=== PATIENT | female | born 1940 | race Caucasian/White ===

== ENCOUNTER → 2016-03-01 | Outpatient (CLI) | payer MEDICARE, BC ==
--- NOTE | 2016-03-04 07:10 | MM ---
Reason for exam: screening (asymptomatic). Last mammogram was performed 1 year ago. History: Patient is postmenopausal. Benign MG stereo VAD BX RT of the right breast, March 04, 2014. Taking estrogen for 24 years beginning at age 47. Physical Findings: A clinical breast exam by your physician is recommended on an annual basis and results should be correlated with mammographic findings. MG 3D Screening Mammo W/Cad Bilateral CC and MLO view(s) were taken. Prior study comparison: February 28, 2015, bilateral MG 3d screening mammo w/cad. August 15, 2014, right breast MG diagnostic mammo RT w CAD. The breast tissue is heterogeneously dense. This may lower the sensitivity of mammography. There is no discrete abnormality. No significant changes when compared with prior studies. ASSESSMENT: Negative, BI-RAD 1 RECOMMENDATION: Routine screening mammogram of both breasts in 1 year.
== END | disposition home or self-care (01) ==
LOC: RADMAMWWP 10:26
PROVIDERS: ATTEND Family Medicine
DX: Z12.31 Encounter for screening mammogram for malignant neoplasm of breast (principal)
CPT/HCPCS: 77063; G0202

== ENCOUNTER → 2017-05-16 | Outpatient (CLI) | payer MEDICARE, BC ==
--- NOTE | 2017-05-19 13:28 | MM ---
Reason for exam: screening (asymptomatic). Last mammogram was performed 1 year and 3 months ago. History: Patient is postmenopausal. Benign MG stereo VAD BX RT of the right breast, March 04, 2014. Taking estrogen for 24 years beginning at age 47. Physical Findings: A clinical breast exam by your physician is recommended on an annual basis and results should be correlated with mammographic findings. MG 3D Screening Mammo W/Cad Bilateral CC and MLO view(s) were taken. Prior study comparison: March 01, 2016, bilateral MG 3d screening mammo w/cad. February 28, 2015, bilateral MG 3d screening mammo w/cad. There are scattered fibroglandular densities. There is chronic nodularity bilaterally. No significant changes when compared with prior studies. ASSESSMENT: Benign, BI-RAD 2 RECOMMENDATION: Routine screening mammogram of both breasts in 1 year.
== END | disposition home or self-care (01) ==
LOC: RADMAMWWP 09:07
PROVIDERS: ATTEND Obstetrics & Gynecology
DX: Z12.31 Encounter for screening mammogram for malignant neoplasm of breast (principal)
CPT/HCPCS: 77063; 77067

== ENCOUNTER 2017-11-12 09:35 | Observation (INO) | payer MEDICARE, BC ==
--- NOTE | 2017-11-12 09:58 | ED ---
Chest Pain HPI - General Chief Complaint: Chest Pain Stated Complaint: CHEST PAIN AND SOB Time Seen by Provider: 11/12/17 09:37 Source: patient, RN notes reviewed, old records reviewed Mode of arrival: EMS Limitations: no limitations - History of Present Illness Initial Comments: This is a 77-year-old female the ER for evaluation of chest pain. Left-sided chest pain. Patient denies history of high blood pressure does have history of chest pain history of prior cardiac evaluation including catheterization which she states both of been negative. She has recent travel history no sick contacts, denies a trauma no fevers no cough or congestion. Patient states she' s had 3-4 days of this chest pain is been intermittent episodic but currently started last night and has been getting worse. She is not requiring anything for pain at this time. -: days(s) (3) Onset: during rest Pain Location: substernal, left chest Pain Radiation: back Severity: moderate Severity scale (1-10): 5 Quality: tightness, dull Consistency: intermittent Improves With: nothing Worsens With: nothing Treatments Prior to Arrival: none - Related Data Home Medications Medication Instructions Recorded Confirmed Omeprazole [PriLOSEC] 20 mg PO AC-BRKFST 10/03/13 11/12/17 Atorvastatin Calcium 20 mg PO HS 07/11/15 11/12/17 Estradiol 1 mg PO DAILY 07/11/15 11/12/17 Acetaminophen/Diphenhydramine 1 tab PO HS PRN 11/12/17 11/12/17 [Tylenol PM Extra Strength] Dicyclomine HCl 10 mg PO AC-TID 11/12/17 11/12/17 Melatonin 3 mg PO HS 11/12/17 11/12/17 Previous Rx's Medication Instructions Recorded Aspirin 81 mg PO DAILY #30 chewable 10/04/13 Nitroglycerin Sl Tabs [Nitrostat] 0.4 mg SUBLINGUAL Q5M PRN #30 tab 10/04/13 Allergies Allergy/AdvReac Type Severity Reaction Status Date / Time adhesive Allergy Rash/Hives Verified 11/12/17 10:57 latex Allergy Rash/Hives Verified 11/12/17 10:57 Review of Systems ROS Statement: Those systems with pertinent positive or pertinent negative responses have been documented in the HPI. ROS Other: All systems not noted in ROS Statement are negative. EKG Findings - EKG Comments: EKG Findings:: EKG shows sinus recurred a rate of 56, W[place] 196, QRS 84, QTc 438 Past Medical History Past Medical History: GERD/Reflux, Hyperlipidemia History of Any Multi-Drug Resistant Organisms: None Reported Past Surgical History: Back Surgery, Cholecystectomy, Heart Catheterization, Hysterectomy Additional Past Surgical History / Comment(s): reduction of pelvic fracture. Past Anesthesia/Blood Transfusion Reactions: No Reported Reaction Past Psychological History: No Psychological Hx Reported Smoking Status: Never smoker Past Alcohol Use History: Occasional Past Drug Use History: None Reported - Past Family History Father Family Medical History: Hypertension Additional Family Medical History / Comment(s): States Father had stents General Exam Limitations: no limitations General appearance: alert, in no apparent distress Head exam: Present: atraumatic, normocephalic, normal inspection Eye exam: Present: normal appearance, PERRL, EOMI. Absent: scleral icterus, conjunctival injection, periorbital swelling ENT exam: Present: normal exam, mucous membranes moist Neck exam: Present: normal inspection. Absent: tenderness, meningismus, lymphadenopathy Respiratory exam: Present: normal lung sounds bilaterally. Absent: respiratory distress, wheezes, rales, rhonchi, stridor Cardiovascular Exam: Present: regular rate, normal rhythm, normal heart sounds. Absent: systolic murmur, diastolic murmur, rubs, gallop, clicks GI/Abdominal exam: Present: soft, normal bowel sounds. Absent: distended, tenderness, guarding, rebound, rigid Extremities exam: Present: normal inspection, full ROM, normal capillary refill. Absent: tenderness, pedal edema, joint swelling, calf tenderness Back exam: Present: normal inspection Neurological exam: Present: alert, oriented X3, CN II-XII intact Psychiatric exam: Present: normal affect, normal mood Skin exam: Present: warm, dry, intact, normal color. Absent: rash Course Vital Signs 11/12/17 11/12/17 11/12/17 09:37 10:48 12:04 Temperature 97.1 F L 97.7 F 98.2 F Pulse Rate 55 L 52 L 55 L Respiratory 18 18 18 Rate Blood Pressure 185/77 154/68 136/89 O2 Sat by Pulse 99 96 94 L Oximetry - Reevaluation(s) Reevaluation #1: 11/12/17 10:48 Patient's medical records thoroughly reviewed Reevaluation #2: 11/12/17 10:48 Patient continues to chest pain Reevaluation #3: 11/12/17 13:16 Studies Chest x-rays negative for acute disease Chest Pain MDM - MDM 77 female the ER for evaluation, positive chest pain. Will be admitted for cardiac observation Critical Care Time Critical Care Time: Yes Total Critical Care Time: 31 Disposition Clinical Impression: Chest pain Disposition: ADMITTED IP TO THIS HOSP Condition: Undetermined Is patient prescribed a controlled substance at d/c from ED?: No
--- NOTE | 2017-11-12 10:20 | XR ---
EXAMINATION TYPE: XR chest 2V DATE OF EXAM: 11/12/2017 COMPARISON: Prior chest x-ray 07/11/2015 HISTORY: Chest pain, coronary artery disease TECHNIQUE: Frontal and lateral views of the chest are obtained. FINDINGS: There is no focal air space opacity, pleural effusion, or pneumothorax seen. The cardiac silhouette size is within normal limits. The patient is rotated, there are overlying cardiac leads. T here are prominent lung volumes. The osseous structures are intact. IMPRESSION: No acute cardiopulmonary process.
[2017-11-12 10:31] LABS: Basophils % (A) 1 %; Eosinophils # (A) 0.4 k/uL (0-0.7); Eosinophils % (A) 6 %; HCT 41.3 % (34.0-46.0); HGB 13.6 gm/dL (11.4-16.0); Lymphocytes # (A) 2.1 k/uL (1.0-4.8); Lymphocytes % (A) 32 %; MCH 31.7 pg (25.0-35.0); MCHC 33.1 g/dL (31.0-37.0); MCV 95.8 fL (80.0-100.0); Mean Platelet Volume 8.7; Monocytes # (A) 0.3 k/uL (0-1.0); Monocytes % (A) 5 %; Neutrophils # (A) 3.6 k/uL (1.3-7.7); Neutrophils % (A) 55 %; Platelet Count 145 k/uL (150-450); RBC 4.31 m/uL (3.80-5.40); RDW 12.6 % (11.5-15.5); WBC 6.6 k/uL (3.8-10.6)
[2017-11-12 10:42] LABS: INR 1.1 (<1.2); Partial Thromboplastin Time 23.4 sec (22.0-30.0); Prothrombin Time 10.4 sec (9.0-12.0)
[2017-11-12 10:52] LABS: Albumin 3.8 g/dL (3.5-5.0); Potassium 4.6 mmol/L (3.5-5.1); Total Bilirubin 0.5 mg/dL (0.2-1.3); Total Protein 6.6 g/dL (6.3-8.2)
[2017-11-12 11:01] LABS: Creatine Kinase 52 U/L (30-135)
[2017-11-12 11:13] LABS: Creatine Kinase MB 1.2 ng/mL (0.0-2.4); Troponin I <0.012 ng/mL (0.000-0.034)
--- NOTE | 2017-11-12 12:09 | CT ---
CT CHEST FOR PULMONARY EMBOLISM. EXAMINATION TYPE: CT angio chest DATE OF EXAM: 11/12/2017 INDICATION: chest pain, cardiac cath CT DLP: 176.1 mGycm, Automated exposure control for dose reduction was used. CONTRAST: Patient injected with 100 mL of Isovue 370. COMPARISON: None TECHNIQUE: CT of the chest is performed on a spiral scan at 2 mm thick sections. Study is performed with intravenous contrast timed for evaluation for pulmonary embolism. This will limit additional po rtions of the evaluation. 3-D MIP images reconstructed by the technologist are reviewed on the compu ter in the coronal and sagittal planes. FINDINGS: No persistent filling defects are evident to suggest an acute pulmonary embolism. No mediastinal or hilar adenopathy enlarged by CT criteria is evident. The ascending aorta diameter at the level of the main pulmonary artery is 2.9 cm. The main pulmonary artery diameter at the bifur cation is 1.9 cm. Lung windows are clear. CT abdomen is performed and reported separately. IMPRESSIONS: 1. No acute pulmonary embolism.
--- NOTE | 2017-11-12 12:22 | CT ---
EXAMINATION TYPE: CT abdomen pelvis w con DATE OF EXAM: 11/12/2017 COMPARISON: HISTORY: chest pain, cardiac cath CT DLP: 1337.8 mGycm Automated exposure control for dose reduction was used. TECHNIQUE: Helical acquisition of images from the lung bases through the pelvis have been completed. CONTRAST: Performed without Oral Contrast and with IV Contrast, patient injected with 100 mL of Isovue 370. FINDINGS: LUNG BASES: No significant abnormality is appreciated. AORTA: No significant abnormality is appreciated. LIVER/GB: Patient is post cholecystectomy. Liver shows no mass. PANCREAS: No significant abnormality is seen. SPLEEN: No significant abnormality is seen. ADRENALS: No significant abnormality is seen. KIDNEYS: There is a hypoattenuating focus measuring 12 mm in the anterior cortex the right kidney lik elizabeth representing cysts, subcentimeter focus within the upper pole the left kidney measures only 3 to 4 mm. REPRODUCTIVE ORGANS: Uterus and adnexal structures are not seen. BOWEL: No significant abnormality is seen. Appendix is not identified. FREE AIR: No Free Air visible. ASCITES: None visible. PELVIC ADENOPATHY: None visualized. RETROPERITONEAL ADENOPATHY: No Retroperitoneal Adenopathy visible. URINARY BLADDER: No significant abnormality is seen. OSSEOUS STRUCTURES: Degenerative disc changes, facet arthropathy noted in the lower lumbar spine. IMPRESSION: POSTOP CHANGES. NO ACUTE ABNORMALITY EVIDENT. ADDITIONAL FINDINGS ABOVE.
[2017-11-12] MEDS ORDERED: MORPHINE SULFATE 4 MG/ML SYRINGE IVP STA (12:30)
[2017-11-12] MEDS ORDERED: HEPARIN SODIUM,PORCINE 5,000 UNIT/ML 1 ML VIAL IV ONE (12:39)
[2017-11-12] MEDS ORDERED: NITROGLYCERIN SL TABS 0.4 MG TAB SUBLINGUAL PRN (12:39)
[2017-11-12] MEDS ORDERED: HEPARIN SODIUM,PORCINE 5,000 UNIT/ML 1 ML VIAL IV PRN (12:39)
[2017-11-12] MEDS ORDERED: ASPIRIN 81 MG PO STA (12:39)
[2017-11-12] MEDS ORDERED: HEPARIN SOD,PORK IN 0.45% NACL 25,000 UNIT in 0.45% NACL 1 500ML.BAG IV SCH (12:45)
[2017-11-12] MEDS ORDERED: MORPHINE SULFATE 4 MG/ML SYRINGE IV PRN (12:45)
[2017-11-12] MEDS: SODIUM CHLORIDE 0.9% 1,000 ML IV SCH ×2 (13:23→23:23)
--- NOTE | 2017-11-12 15:44 | P.CRDCN ---
History of Present Illness History of present illness: Mrs. Phillips is a pleasant 77-year-old female past medical history significant for dyslipidemia, irritable bowel syndrome and gastroesophageal reflux disease. She denies coronary artery disease. She underwent cardiac catheterization 07/2015 that revealed normal coronary arteries with normal LV systolic function ejection fraction 70%. She follows with Dr. Rollins in the office. We have been asked to see her in consultation for chest pain. She states she woke up this morning in her normal state of health and was drinking her coffee and ate 2 bites of a banana when she started feeling her heart racing. She was also light headed. She has a home monitoring cuff that she applied and she states her heart rate was 223, questioned whether this was her systolic blood pressure but she was adament this was her heart rate. She then started developing a pain in her left upper back radiating through to her chest , into the left shoulder and down her left upper arm. She called EMS. She states when they arrived she was still having the intense pain. They gave her SL nitroglycerin x3 which did not relieve her pain. Upon arrival to ED she was given IV morphine which took away the pain. She has had no further pain since that time. Blood pressure on arrival 185/77 heart rate 55. EMS report reviewed reveals blood pressure on admission was 200/123 with heart rate in the 80's. EKG reveals sinus mechanism with non-specific ST abnormalities and no acute changes. Chest xray negative for an acute cardiopulmonary process. CTA chest/abdomen/pelvis negative for PE with no abnormalities within the aorta. Laboratory data reviewed, hgb 13.6, platelets 145, sodium 139, potassium 4.6, creatinine 0.77, magnesium 2.0, cardiac enzymes negative 1, NT proBNP 385. Current cardiac medications include aspirin 81 mg daily, atorvastatin 20 mg daily. She also takes Prilosec and dicyclomine. Review of Systems At the time of my exam: CONSTITUTIONAL: Denies fever. Denies chills. EYES: Denies blurred vision. Denies vision changes. Denies eye pain. EARS, NOSE, MOUTH & THROAT: Denies headache. Denies sore throat. Denies ear pain. CARDIOVASCULAR: Denies chest pain. Denies shortness of breath. Denies orthopnea. Denies PND. Denies palpitations. RESPIRATORY: Denies cough. GASTROINTESTINAL: Denies abdominal pain. Denies diarrhea. Denies constipation. Denies nausea. Denies vomiting. MUSCULOSKELETAL: Denies myalgias. INTEGUMENTARY: Denies pruitis. Denies rash. NEUROLOGIC: Denies numbness. Denies tingling. Denies weakness. PSYCHIATRIC: Denies anxiety. Denies depression. ENDOCRINE: Denies fatigue. Denies weight change. Denies polydipsia. Denies polyurina. GENITOURINARY: Denies burning, hematuria or urgency with micturation. HEMATOLOGIC: Denies history of anemia. Denies bleeding. Past Medical History Past Medical History: GERD/Reflux, Hyperlipidemia History of Any Multi-Drug Resistant Organisms: None Reported Past Surgical History: Back Surgery, Cholecystectomy, Heart Catheterization, Hysterectomy Additional Past Surgical History / Comment(s): reduction of pelvic fracture. Past Anesthesia/Blood Transfusion Reactions: No Reported Reaction Past Psychological History: No Psychological Hx Reported Smoking Status: Never smoker Past Alcohol Use History: Occasional Past Drug Use History: None Reported - Past Family History Father Family Medical History: Hypertension Additional Family Medical History / Comment(s): States Father had stents Medications and Allergies Home Medications Medication Instructions Recorded Confirmed Type Omeprazole [PriLOSEC] 20 mg PO AC-BRKFST 10/03/13 11/12/17 History Aspirin 81 mg PO DAILY #30 chewable 10/04/13 11/12/17 Rx Nitroglycerin Sl Tabs [Nitrostat] 0.4 mg SUBLINGUAL Q5M PRN #30 tab 10/04/1304/27 Rx Atorvastatin Calcium 20 mg PO HS 07/11/15 11/12/17 History Estradiol 1 mg PO DAILY 07/11/15 11/12/17 History Acetaminophen/Diphenhydramine 1 tab PO HS PRN 11/12/17 11/12/17 History [Tylenol PM Extra Strength] Dicyclomine HCl 10 mg PO AC-TID 11/12/17 11/12/17 History Melatonin 3 mg PO HS 11/12/17 11/12/17 History Allergies Allergy/AdvReac Type Severity Reaction Status Date / Time adhesive Allergy Rash/Hives Verified 11/12/17 10:57 latex Allergy Rash/Hives Verified 11/12/17 10:57 Physical Exam Vitals: Vital Signs Temp Pulse Resp BP Pulse Ox 11/12/17 13:27 98.4 F 52 L 18 162/107 94 L 11/12/17 12:04 98.2 F 55 L 18 136/89 94 L 11/12/17 10:48 97.7 F 52 L 18 154/68 96 11/12/17 09:37 97.1 F L 55 L 18 185/77 99 Intake and Output 11/11/17 11/12/17 11/12/17 22:59 06:59 14:59 Other: Weight 65.68 kg GENERAL: This is a 77-year-old female in no apparent distress at the time of my examination. HEENT: Head is atraumatic, normocephalic. Pupils are equal, round. Sclerae anicteric. Conjunctivae are clear. Mucous membranes of the mouth are moist. Neck is supple. There is no jugular venous distention. No carotid bruit is heard. LUNGS: Clear to auscultation no wheezes, rales or rhonchi. No chest wall tenderness is noted on palpation or with deep breathing. HEART: Regular rate and rhythm without murmurs, rubs or gallops. S1 and S2 heard. ABDOMEN: Soft, nontender. Bowel sounds are heard. No organomegaly noted. EXTREMITIES: No evidence of peripheral edema and no calf tenderness noted. VASCULAR: Radial and dorsalis pedis pulses palpated, no evidence of clubbing. NEUROLOGIC: Patient is awake, alert and oriented x3. Results 11/12/17 09:43 11/12/17 09:43 Cardiac Enzymes 11/12/17 11/12/17 Range/Units 09:43 09:43 AST 21 (14-36) U/L CK-MB (CK-2) 1.2 (0.0-2.4) ng/mL Troponin I <0.012 (0.000-0.034) ng/mL Coagulation 11/12/17 Range/Units 09:43 PT 10.4 (9.0-12.0) sec APTT 23.4 (22.0-30.0) sec CBC 11/12/17 Range/Units 09:43 WBC 6.6 (3.8-10.6) k/uL RBC 4.31 (3.80-5.40) m/uL Hgb 13.6 (11.4-16.0) gm/dL Hct 41.3 (34.0-46.0) % Plt Count 145 L (150-450) k/uL Comprehensive Metabolic Panel 11/12/17 Range/Units 09:43 Sodium 139 (137-145) mmol/L Potassium 4.6 (3.5-5.1) mmol/L Chloride 106 (98-107) mmol/L Carbon Dioxide 24 (22-30) mmol/L BUN 19 H (7-17) mg/dL Creatinine 0.77 (0.52-1.04) mg/dL Glucose 87 (74-99) mg/dL Calcium 9.0 (8.4-10.2) mg/dL AST 21 (14-36) U/L ALT 12 (9-52) U/L Alkaline Phosphatase 41 (38-126) U/L Total Protein 6.6 (6.3-8.2) g/dL Albumin 3.8 (3.5-5.0) g/dL Current Medications Generic Name Dose Route Start Last Admin Trade Name Freq PRN Reason Stop Dose Admin Aspirin 325 mg 11/13/17 09:00 Aspirin PO DAILY [facility] Atorvastatin Calcium 80 mg 11/13/17 09:00 Lipitor PO DAILY [facility] Heparin Sodium (Porcine) 0 unit 11/12/17 12:39 Heparin IV Q6HR PRN Low PTT Protocol Heparin Sodium/Sodium Chloride 500 mls @ 15.76 mls/hr 11/12/17 12:45 13:23 25,000 unit/ Sodium Chloride IV 12 units/kg/hr .Q24H TANI 15.76 mls/hr Administration Protocol 12 UNITS/KG/HR Sodium Chloride 1,000 mls @ 100 mls/hr 11/12/17 12:45 11/12/17 13:23 Saline 0.9% IV 100 mls/hr .Q10H TANI Administration Metoprolol Tartrate 25 mg 11/12/17 21:00 Lopressor PO BID TANI Morphine Sulfate 4 mg 11/12/17 12:45 Morphine Sulfate (Inj) IV Q4HR PRN Chest Pain Nitroglycerin 0.4 mg 11/12/17 12:39 Nitrostat SUBLINGUAL Q5M PRN Chest Pain Intake and Output 11/11/17 11/12/17 11/12/17 22:59 06:59 14:59 Other: Weight 65.68 kg Patient Weight 11/13/17 06:59 Weight 65.68 kg 11/12/17 09:43 11/12/17 09:43 Assessment and Plan Assessment: ASSESSMENT Palpitations with associated chest pain and dizziness. Pain is atypical for angina. Recent catheterization reveals normal coronary arteries. Hypertension Dyslipidemia Gastroesophageal reflux disease PLAN Obtain 2D echocardiogram and doppler study to assess cardiac structure and function. Check TSH. Add amlodipine 5 mg daily. Continue to obtain serial cardiac enzymes to rule out an acute event. If enzymes are normal heparin infusion can be discontinued. Thank you kindly for this consultation. Nurse Practitioner note has been reviewed, I agree with a documented findings and plan of care. Patient was seen and examined.
[2017-11-12] MEDS: amLODIPine 5 MG TAB PO SCH ×2 (16:34→19:40)
[2017-11-12] MEDS ORDERED: ACETAMINOPHEN TAB 500 MG TAB PO PRN (16:47)
[2017-11-12] MEDS ORDERED: diphenhydrAMINE 25 MG CAP PO PRN (16:54)
[2017-11-12] MEDS: ONDANSETRON 4 MG/2 ML VIAL IVP PRN (17:09)
[2017-11-12 17:27] LABS: Creatine Kinase MB 1.1 ng/mL (0.0-2.4); Troponin I 0.023 ng/mL (0.000-0.034)
[2017-11-12] MEDS: DICYCLOMINE 10 MG CAP PO SCH (19:39)
[2017-11-12] MEDS ORDERED: METOPROLOL TARTRATE 25 MG TAB PO SCH (21:00)
[2017-11-12] MEDS ORDERED: MELATONIN 3 MG TABLET PO SCH (21:00)
[2017-11-12] MEDS ORDERED: ATORVASTATIN 20 MG TAB PO SCH (21:00)
[2017-11-12 21:04] LABS: Creatine Kinase MB 1.3 ng/mL (0.0-2.4); Troponin I 0.026 ng/mL (0.000-0.034)
--- NOTE | 2017-11-12 21:51 | HP ---
HISTORY AND PHYSICAL DATE OF ADMISSION: 11/12/2017 DATE OF SERVICE: 11/12/2017 PRESENTING COMPLAINT: Back pain. HISTORY OF PRESENTING COMPLAINT: This is a very pleasant 77-year-old patient of Dr. Knutson. Chronic stable medical conditions include GERD, hypertension, hyperlipidemia. This morning she woke up with pain starting off at the left shoulder blade, then going down between the shoulder blades, felt like a grabbing pain, present on and off for most of the day. It did go down the left arm. There were episodes of dizziness. No shortness of breath. Some lightheadedness. Patient did get nitroglycerin, with not much help. She presented to the ER. Earlier a CT angio was done. PE was ruled out. Cardiology was consulted, who saw the patient earlier today. Patient was put on IV heparin from the ER. Symptoms are greatly improved right now, though patient does feel tired. REVIEW OF SYSTEMS: CONSTITUTIONAL: None. HEENT: None. RESPIRATORY: None. CARDIOVASCULAR: As above. GASTROINTESTINAL: Heartburn. GENITOURINARY: None. MUSCULOSKELETAL: Some arthritic pain in the joints. DERMATOLOGICAL: None. HEMATOLOGICAL: None. LYMPHATICS: None. PSYCHIATRY: None. NEUROLOGICAL: None. PAST MEDICAL HISTORY: 1. GERD. 2. Hyperlipidemia. 3. Hypertension. PAST SURGICAL HISTORY: 1. Back surgery. 2. Cholecystectomy. 3. Cardiac catheterization. 4. Hysterectomy. 5. Reduction of pelvic fracture. SOCIAL HISTORY: Does not smoke. Alcohol occasionally. Lives with significant other. FAMILY HISTORY: Father had coronary artery disease and hypertension. HOME MEDICATIONS: 1. Melatonin 3 mg at bedtime. 2. Tylenol PM extra-strength. 3. Prilosec 20 mg with breakfast. 4. Nitrostat 0.4 sublingually q.5 p.r.n. 5. Estradiol 1 mg p.o. daily. 6. Dicyclomine 10 mg before meals t.i.d. 7. Atorvastatin 20 mg at bedtime. 8. Aspirin 81 mg daily. ALLERGIES: 1. ADHESIVE. 2. LATEX. PHYSICAL EXAMINATION: VITAL SIGNS ON PRESENTATION: Temperature 97.1, pulse 55, respiration 18, blood pressure 185/77, pulse ox 99% on room air. Repeat blood pressure was 154/68 and repeat blood pressure was 138/69. GENERAL APPEARANCE: Average build. Lying in bed, comfortable. EYES: Pupils equal. Conjunctivae normal. HEENT: External appearance of nose and ears normal. Oral cavity normal. NECK: JVD not raised. Mass not palpable. RESPIRATORY: Effort normal. LUNGS: Fair air entry. CARDIOVASCULAR: First and second sounds normal. No edema. ABDOMEN: Soft, non-tender. Liver and spleen not palpable. LYMPHATIC: No lymph node palpable in neck or axillae. PSYCHIATRY: Alert and oriented x3. Mood and affect normal. EXTREMITIES: Patient's radial pulses in both the arms show the same volume. INVESTIGATIONS: White count 6.6, hemoglobin 13.6, potassium 4.6, BUN 19, creatinine 0.77. EKG tracing, personally reviewed by me, shows some ST-segment depression in V4 to V6 and possibly in II and aVF. Abdominal/pelvis CT scan: no acute abnormality reported. Chest CTA shows no acute pulmonary embolism. Chest x-ray, personally reviewed by me, shows no obvious abnormality. ASSESSMENT: 1. This is a patient who presented with significant pain on and off for a few hours between the shoulder blades with some EKG changes associated with dizziness; could well be cardiac angina. Patient did have a chest CTA for pulmonary embolism. No dissection was reported. I have ordered another CT scan of the chest to see if I can rule out aortic dissection, though will check with the radiologist to see if the previous CT scan can give the same answer. 2. Essential hypertension with urgency on presentation. 3. Hyperlipidemia. 4. Gastroesophageal reflux disease. 5. Chronic insomnia, idiopathic. PLAN: Cardiology was consulted. Serial cardiac enzymes were ordered and they are less than 0.012, 0.023, 0.026. Follow up with them. Care was discussed with the patient. MMODL / IJN: [id number] /
[2017-11-13 03:14] LABS: Mean Platelet Volume 8.4; Platelet Count 151 k/uL (150-450)
[2017-11-13 03:28] LABS: Cholesterol 130 mg/dL (<200); HDL Cholesterol 71 mg/dL (40-60); LDL Cholesterol,Calculated 40 mg/dL (0-99); Triglycerides 96 mg/dL (<150)
[2017-11-13] MEDS ORDERED: PANTOPRAZOLE 40 MG TABLET PO SCH (07:30)
[2017-11-13 07:46] VITALS: RESP 16
--- NOTE | 2017-11-13 08:47 | P.PN ---
Subjective Mrs. Phillips is seen and examined up walking around her room from the bathroom. Past medical history significant for dyslipidemia, irritable bowel syndrome and gastroesophageal reflux disease. She has had no further symptoms of chest pain since admission. She denies shortness of breath, dizziness or palpitations. Echo has been obtained and will be reviewed. Laboratory data reviewed, cardiac enzymes negative x4, LDL 40, HDL 71, TSG 1.98. Amlodipine was started yesterday for hypertension. On further discussion she states she also takes lopressor 25 mg BID but forgot to mention on admission. Blood pressure 136/65 heat rate 63 afebrile and maintaining oxygen saturation on room air. Objective - Vital Signs Vital signs: Vital Signs Temp 98.5 F 11/13/17 07:44 Pulse 63 11/13/17 07:44 Resp 16 11/13/17 07:44 BP 136/65 11/13/17 07:44 Pulse Ox 95 11/13/17 07:44 Intake & Output 11/12/17 11/13/17 11/13/17 18:59 06:59 18:59 Intake Total 118.2 Balance 118.2 Weight 62.4 kg Intake: Intake, IV Titration 118.2 Amount Heparin Sod,Pork in 0.45% 118.2 NaCl 25,000 unit In 0.45 % NaCl 1 500ml.bag @ 12 UNITS/KG/HR 15.76 mls/hr IV .Q24H [facility] Rx#: [id number] Other: Voiding Method Toilet Toilet # Emeses 1 - Exam GENERAL: This is a 77-year-old female in no apparent distress at the time of my examination. HEENT: Head is atraumatic, normocephalic. Pupils are equal, round. Sclerae anicteric. Conjunctivae are clear. Mucous membranes of the mouth are moist. Neck is supple. There is no jugular venous distention. No carotid bruit is heard. LUNGS: Clear to auscultation no wheezes, rales or rhonchi. No chest wall tenderness is noted on palpation or with deep breathing. HEART: Regular rate and rhythm without murmurs, rubs or gallops. S1 and S2 heard. EXTREMITIES: No evidence of peripheral edema and no calf tenderness noted. - Labs CBC & Chem 7: 11/13/17 02:48 11/12/17 09:43 Labs: Abnormal Lab Results - Last 24 Hours (Table) 11/12/17 11/12/17 11/12/17 Range/Units 09:43 09:43 20:07 Plt Count 145 L (150-450) k/uL APTT 76.2 H (22.0-30.0) sec BUN 19 H (7-17) mg/dL HDL Cholesterol (40-60) mg/dL 11/13/17 11/13/17 Range/Units 02:47 02:47 Plt Count (150-450) k/uL APTT 52.4 H (22.0-30.0) sec BUN (7-17) mg/dL HDL Cholesterol 71 H (40-60) mg/dL Assessment and Plan Assessment: ASSESSMENT Palpitations with associated chest pain and dizziness. Pain is atypical for angina. Recent catheterization reveals normal coronary arteries. Hypertension Dyslipidemia Gastroesophageal reflux disease PLAN An acute coronary event has been ruled out. Blood pressure is better controlled and she is tolerating amlodipine. Stable from a cardiac perspective. Ongoing treatment per primary medical team of other etiologies for her symptoms. Follow up with Dr. Rollins at already scheduled appointment in December. Advised her to keep a blood pressure journal and bring with her to follow up appointment. Nurse Practitioner note has been reviewed, I agree with a documented findings and plan of care. Patient was seen and examined.
[2017-11-13] MEDS: DICYCLOMINE 10 MG CAP PO SCH ×2 (08:59→13:17)
[2017-11-13] MEDS: amLODIPine 5 MG TAB PO SCH (08:59)
[2017-11-13] MEDS ORDERED: ESTRADIOL 0.5 MG TAB PO SCH (09:00)
[2017-11-13] MEDS ORDERED: METOPROLOL TARTRATE 25 MG TAB PO SCH (09:00)
[2017-11-13] MEDS ORDERED: ASPIRIN 325 MG TAB PO SCH (09:00)
[2017-11-13] MEDS ORDERED: ASPIRIN 81 MG PO SCH (09:00)
[2017-11-13] MEDS ORDERED: ATORVASTATIN 80 MG TAB PO SCH (09:00)
[2017-11-13] MEDS: SODIUM CHLORIDE 0.9% 1,000 ML IV SCH (09:29)
--- NOTE | 2017-11-13 11:43 | ECHOF ---
Referral Reason:cp MEASUREMENTS -------- HEIGHT: 154.9 cm WEIGHT: 62.1 kg BP: 130/54 IVSd: 1.1 cm (0.6 - 1.1) LVIDd: 3.4 cm (3.9 - 5.3) LVPWd: 1.0 cm (0.6 - 1.1) IVSs: 1.3 cm LVIDs: 2.2 cm LVPWs: 1.3 cm LAESV Index (A-L): 29.67 ml/m Ao Diam: 2.9 cm (2.0 - 3.7) AV Cusp: 1.8 cm (1.5 - 2.6) LA Diam: 3.2 cm (2.7 - 3.8) EPSS: 0.6 cm MV E Alex: 1.14 m/s MV DecT: 239 ms MV A Alex: 1.09 m/s MV E/A Ratio: 1.05 RAP: 5.00 mmHg RVSP: 36.46 mmHg MV EF SLOPE: 81.06 mm/s (70 - 150) MV EXCURSION: 1.87 cm (> 18.000) FINDINGS -------- Sinus rhythm. This was a technically good study. The left ventricular size is normal. There is borderline concentric left ventricular hypertrophy. Overall left ventricular systolic function is normal with, an EF between 55 - 60 %. The right ventricle is normal in size and function. LA is midly dilated 29-33ml/m2. The right atrium is normal in size. Aortic valve is trileaflet and is mildly thickened. Trace amount of aortic regurgitation. There is no evidence of aortic stenosis. Mild mitral annular calcification present. Mild mitral regurgitation is present. Mild tricuspid regurgitation present. There is mild pulmonary hypertension. The right ventricular systolic pressure, as measured by Doppler, is 36.46mmHg. Trace/mild (physiologic) pulmonic regurgitation. The aortic root size is normal. Normal inferior vena cava with normal inspiratory collapse consistent with estimated right atrial pre ssure of 5 mmHg. There is no pericardial effusion. CONCLUSIONS -------- 1. Sinus rhythm. 2. This was a technically good study. 3. The left ventricular size is normal. 4. There is borderline concentric left ventricular hypertrophy. 5. Overall left ventricular systolic function is normal with, an EF between 55 - 60 %. 6. LA is midly dilated 29-33ml/m2. 7. Aortic valve is trileaflet and is mildly thickened. 8. Trace amount of aortic regurgitation. 9. Mild mitral annular calcification present. 10. Mild mitral regurgitation is present. 11. Mild tricuspid regurgitation present. 12. There is mild pulmonary hypertension. 13. Trace/mild (physiologic) pulmonic regurgitation. 14. The aortic root size is normal. 15. There is no pericardial effusion. TOYS INSPECTOR: Anastacio Lyle RDCS
[2017-11-13 11:59] VITALS: PULSE 56; TEMP 98.7
[2017-11-13] MEDS: ONDANSETRON 4 MG/2 ML VIAL IVP PRN (13:17)
[2017-11-13 13:34] VITALS: BP 132/65
--- NOTE | 2017-11-15 08:57 | DS ---
DISCHARGE SUMMARY DATE OF ADMISSION: 11/12/2017. DATE OF DISCHARGE: 11/13/2017. FINAL DIAGNOSES: 1. Posterior chest wall pain could be musculoskeletal. 2. Essential hypertension with urgency, present on admission. 3. Hyperlipidemia. 4. Gastroesophageal reflux disease. 5. Chronic insomnia idiopathic. HOSPITAL COURSE: This patient presented with pain between the shoulder blades. Chest CT was negative for pulmonary embolism. I spoke to Dr. Stoddard, the radiologist. There was no evidence of aortic dissection. Blood pressure was running high when she presented. Medications were adjusted by Cardiology. The patient did have a 2-D echocardiogram that shows preserved LV function. Left ventricular size was normal. Care was discussed with the patient. Patient was symptom free, up and about feeling well at the time of discharge. PHYSICAL EXAMINATION: Temperature 98.7, pulse 56 and respiratory rate 16 and blood pressure 152/68. DISCHARGE MEDICATIONS: 1. Prilosec 20 mg with breakfast. 2. Aspirin 81 mg a day. 3. Nitrostat 0.4 sublingual q.5h p.r.n. 4. Estradiol 1 mg p.o. daily. 5. Tylenol p.m. 1 tablet p.o. q.h.s. p.r.n. 6. Bentyl 10 mg t.i.d. 7. Melatonin 3 mg q.h.s. 8. Lipitor 20 mg q.h.s. 9. Norvasc 5 mg p.o. daily, new medication. 10.Lopressor 25 mg b.i.d., new medication. 11.Lipitor also a new medication. CONSULTATION: Dr. Jose from Cardiology. FOLLOWUP: Follow up with Dr. Knutson in 3 days, follow with Dr. Jonna Rollnis in [address] Knutson. Discussion and discharge planning more than 35 minutes. MMODL / IJN: [id number] /
== END 2017-11-13 15:57 | disposition home or self-care (01) ==
LOC: EC 09:35 → 3OBS 12:39
PROVIDERS: ADMIT Hospitalist; ATTEND Hospitalist
DX: R07.89 Other chest pain (principal); I16.0 Hypertensive urgency; I10 Essential (primary) hypertension; K21.9 Gastro-esophageal reflux disease without esophagitis; M54.6 Pain in thoracic spine; F51.04 Psychophysiologic insomnia; K58.9 Irritable bowel syndrome, unspecified; M25.50 Pain in unspecified joint; E78.5 Hyperlipidemia, unspecified; Z79.890 Hormone replacement therapy; Z79.899 Other long term (current) drug therapy; Z79.82 Long term (current) use of aspirin; Z91.040 Latex allergy status; Z91.048 Other nonmedicinal substance allergy status; Z90.49 Acquired absence of other specified parts of digestive tract; Z90.710 Acquired absence of both cervix and uterus; Z87.81 Personal history of (healed) traumatic fracture; Z82.49 Family history of ischemic heart disease and other diseases of the circulatory system
CPT/HCPCS: 96366 ×2; 96375 ×2; 96376 ×2; 96365; 99291; 36415; 93005; 93306; 83880; 80061; 80053; 84443; 82550; 82553; 83690; 83735; 84484 ×2; 85025; 85049; 85610; 85730 ×2; 71046; 71275; 74177; G0378 ×2; J2270; J1644 ×2; J2405 ×2; Q9967

== ENCOUNTER → 2018-06-11 | Outpatient (CLI) | payer MEDICARE, BC ==
--- NOTE | 2018-06-12 12:32 | MM ---
Reason for exam: screening (asymptomatic). Last mammogram was performed 1 year and 1 month ago. History: Patient is postmenopausal. Benign MG stereo VAD BX RT of the right breast, March 04, 2014. Taking estrogen for 24 years beginning at age 47. Physical Findings: A clinical breast exam by your physician is recommended on an annual basis and results should be correlated with mammographic findings. MG 3D Screening Mammo W/Cad Bilateral CC and MLO view(s) were taken. Prior study comparison: May 16, 2017, bilateral MG 3d screening mammo w/cad. March 01, 2016, bilateral MG 3d screening mammo w/cad. The breast tissue is heterogeneously dense. This may lower the sensitivity of mammography. There is no discrete abnormality. No significant changes when compared with prior studies. ASSESSMENT: Negative, BI-RAD 1 RECOMMENDATION: Routine screening mammogram of both breasts in 1 year.
== END | disposition home or self-care (01) ==
LOC: RADMAMWWP 09:18
PROVIDERS: ATTEND Family Medicine
DX: Z12.31 Encounter for screening mammogram for malignant neoplasm of breast (principal)
CPT/HCPCS: 77063; 77067

== ENCOUNTER → 2018-12-23 | Outpatient (CLI) | payer MEDICARE, BC ==
--- NOTE | 2018-12-23 14:36 | MR ---
EXAMINATION TYPE: MR knee LT wo con DATE OF EXAM: 12/23/2018 COMPARISON: None HISTORY: Left knee pain TECHNIQUE: Multiplanar, multisequence imaging of the left knee is performed without IV contrast. FINDINGS: MEDIAL MENISCUS: There is some increased signal along the medial meniscus. The posterior horn appears attenuated, some linear increased signal is is on sagittal image 22 within the posterior horn extend ing to the articular surface, some additional irregularity is present on sagittal image 20 which comm unicates with the articular surface. Pseudoextrusion of the medial meniscus is present. LATERAL MENISCUS: Anterior horn of the lateral meniscus shows some irregular increased signal on sagi ttal image #9 which is thought to communicate with the articular surface CRUCIATE LIGAMENTS: Posterior cruciate ligament is intact. Anterior cruciate ligament fibers are not well defined, there is increased signal throughout the distribution and there is some local mass effe ct due to spurring at the lateral femoral condyle in its medial extent causing some mass effect on th is region COLLATERAL LIGAMENTS: The medial collateral ligament and lateral collateral ligament complex are inta ct and unremarkable. EXTENSOR MECHANISM: Visualized quadriceps and patellar tendons are intact. EFFUSION: Suprapatellar joint effusion is present POPLITEAL CYST: No popliteal/alonso cyst. TRICOMPARTMENT SPACES: Joint space loss is present greatest in the medial compartment CARTILAGE: There is grade 3 to grade IV chondromalacia in the medial compartment. Grade 2 to grade II I chondromalacia at the posterior patella and lateral compartment BONE MARROW SIGNAL: There is intermediate signal on T1, increased signal on T2-weighted sequences wit hin the proximal tibia and the intercondylar region. OTHER: Subcutaneous edema changes are present. IMPRESSION: Osteoarthritis. Findings may be indicative of chronic tear of the anterior cruciate ligament versus s evere strain. Tears of the menisci as described. Joint effusion and additional findings above.
== END | disposition home or self-care (01) ==
LOC: RADMRIMAIN 13:29
PROVIDERS: ATTEND Family Medicine
DX: S83.207A Unspecified tear of unspecified meniscus, current injury, left knee, initial encounter (principal); M17.12 Unilateral primary osteoarthritis, left knee; M22.42 Chondromalacia patellae, left knee

== ENCOUNTER → 2019-09-02 | Outpatient (CLI) | payer MEDICARE, BC ==
--- NOTE | 2019-09-09 09:36 | MM ---
Reason for exam: screening (asymptomatic). Last mammogram was performed 1 year and 3 months ago. History: Patient is postmenopausal. Benign MG stereo VAD BX RT of the right breast, March 04, 2014. Taking estrogen for 24 years beginning at age 47. Physical Findings: A clinical breast exam by your physician is recommended on an annual basis and results should be correlated with mammographic findings. MG 3D Screening Mammo W/Cad Bilateral CC and MLO view(s) were taken. Prior study comparison: June 11, 2018, bilateral MG 3d screening mammo w/cad. May 16, 2017, bilateral MG 3d screening mammo w/cad. There are scattered fibroglandular densities. Previous mammotome biopsy in the right breast. No significant changes when compared with prior studies. ASSESSMENT: Negative, BI-RAD 1 RECOMMENDATION: Routine screening mammogram of both breasts in 1 year.
== END | disposition home or self-care (01) ==
LOC: RADMAMWWP 13:23
PROVIDERS: ATTEND Family Medicine
DX: Z12.31 Encounter for screening mammogram for malignant neoplasm of breast (principal)
CPT/HCPCS: 77063; 77067

== ENCOUNTER → 2020-09-26 | Outpatient (CLI) | payer MEDICARE, BC ==
--- NOTE | 2020-09-27 11:46 | MM ---
Reason for exam: screening (asymptomatic). Last mammogram was performed 1 year and 1 month ago. History: Patient is postmenopausal. Benign MG stereo VAD BX RT of the right breast, March 04, 2014. Taking estrogen for 24 years beginning at age 47. Physical Findings: A clinical breast exam by your physician is recommended on an annual basis and results should be correlated with mammographic findings. MG 3D Screening Mammo W/Cad Bilateral CC and MLO view(s) were taken. Prior study comparison: September 02, 2019, bilateral MG 3d screening mammo w/cad. June 11, 2018, bilateral MG 3d screening mammo w/cad. There are scattered fibroglandular densities. Previous mammotome biopsy in the right breast. There is no discrete abnormality. ASSESSMENT: Benign, BI-RAD 2 RECOMMENDATION: Routine screening mammogram of both breasts in 1 year.
== END | disposition home or self-care (01) ==
LOC: RADMAMWWP 11:38
PROVIDERS: ATTEND Family Medicine
DX: Z12.31 Encounter for screening mammogram for malignant neoplasm of breast (principal); Z78.0 Asymptomatic menopausal state
CPT/HCPCS: 77063; 77067

== ENCOUNTER 2020-09-27 12:48 | Emergency (ER) | payer MEDICARE, BC ==
[2020-09-27 13:11] VITALS: BP 177/62; PULSE 57; RESP 18; TEMP 97.9
[2020-09-27] MEDS ORDERED: KETOROLAC 15 MG/ML 1 ML VIAL IVP STA ×2 (13:44→15:34)
[2020-09-27] MEDS ORDERED: ONDANSETRON 4 MG/2 ML VIAL IVP STA (13:45)
[2020-09-27 14:17] LABS: Basophils % (A) 1 %; Eosinophils # (A) 0.5 k/uL (0-0.7); Eosinophils % (A) 6 %; HCT 43.2 % (34.0-46.0); HGB 15.1 gm/dL (11.4-16.0); Lymphocytes # (A) 2.6 k/uL (1.0-4.8); Lymphocytes % (A) 32 %; MCH 34.1 pg (25.0-35.0); MCHC 35.1 g/dL (31.0-37.0); MCV 97.2 fL (80.0-100.0); Mean Platelet Volume 9.6; Monocytes # (A) 0.5 k/uL (0-1.0); Monocytes % (A) 6 %; Neutrophils # (A) 4.2 k/uL (1.3-7.7); Neutrophils % (A) 53 %; Platelet Count 159 k/uL (150-450); RBC 4.44 m/uL (3.80-5.40); RDW 13.3 % (11.5-15.5); WBC 7.9 k/uL (3.8-10.6)
[2020-09-27 14:30] LABS: ALT 19 U/L (4-34); AST 28 U/L (14-36); African American GFR (CKD) >90 (>60 ml/min/1.73 sqM); Albumin 4.7 g/dL (3.5-5.0); Alkaline Phosphatase 47 U/L (38-126); Anion Gap 9 mmol/L; Blood Urea Nitrogen 20 mg/dL (7-17); Calcium 9.5 mg/dL (8.4-10.2); Carbon Dioxide 28 mmol/L (22-30); Chloride 103 mmol/L (98-107); Glucose 104 mg/dL (74-99); Non-African American GFR(CKD) 84 (>60 ml/min/1.73 sqM); Potassium 3.8 mmol/L (3.5-5.1); Sodium 140 mmol/L (137-145); Total Bilirubin 0.2 mg/dL (0.2-1.3); Total Protein 7.7 g/dL (6.3-8.2)
--- NOTE | 2020-09-27 14:58 | CT ---
EXAMINATION TYPE: CT iac w con DATE OF EXAM: 09/27/2020 COMPARISON: NONE HISTORY: left ear pain, dizziness and outpatient treatment CT DLP: 202 mGycm. Automated Exposure Control for Dose Reduction was Utilized. TECHNIQUE: CT scan of internal auditory canal is performed with IV contrast, thin cut axial images ar e obtained, coronal reformatted images are also reviewed. Patient injected with 100 cc of Isovue-300 . FINDINGS: The external auditory canals are patent bilaterally. Mastoid air cells show no evidence of abnormal opacification bilaterally. The middle ear ossicles are symmetric and unremarkable. There is no evidence of suspicious surroundi ng soft tissue density to suggest cholesteatoma. The scutum is preserved bilaterally. The cochlea and the semicircular canals are symmetric period left-sided superior semicircular canal c oronal image 62 and axial image 31 may have small area of overlying nonbony overgrowth. Cannot exclud e superior canal dehiscence in appropriate clinical setting. Consider nonemergent follow-up. Vestibu lar aqueduct and internal carotid canal are maintained. Mild calcified plaque distally is present. Temporomandibular joints are maintained bilaterally. Visualized paranasal sinuses show mild mucosal thickening in left maxillary sinus and more dense opacity in the smaller caliber right maxillary sinu s otherwise are clear. Visualized portion brain parenchyma is felt within normal limits. No suspiciou s postcontrast enhancement. IMPRESSION: No significant infectious or inflammatory left external or middle ear process.
[2020-09-27] MEDS ORDERED: AMOXIC-POT CLAV 875-125MG 1 EACH TAB PO STA (15:39)
--- NOTE | 2020-09-27 15:39 | ED ---
ENT HPI - General Chief complaint: ENT Stated complaint: dizzy, nausea, ear problem Source: patient, family Mode of arrival: ambulatory Limitations: no limitations - History of Present Illness Initial comments: Patient is a 80-year-old female presents to the emergency room with right-sided ear pain. States it been present since August 21. She had sudden onset of right ear pain, vertigo and muffled hearing. She saw her primary care doctor who placed her on a course of antibiotic eardrops. She then saw her primary care doctor again on September 11 as she was still symptomatic. States that she was placed on oral amoxicillin and finished it 10 days ago without improvement in her symptoms. She was instructed to go see Dr. Car. She has an appointment with him on the however continues to have pain. States that the noise is so loud that is causing her to have a headache. Endorses pressure in the right ear. Reports that she cannot make it to her appointment on the without any relief. She has any fevers or chills. Does admit to mastoid tenderness. No visual changes or sore throat. Denies any neck pain. 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 - Related Data Home Medications Medication Instructions Recorded Confirmed Omeprazole [PriLOSEC] 20 mg PO AC-BRKFST 10/03/13 06/24/18 Estradiol 1 mg PO DAILY 07/11/15 06/24/18 Acetaminophen/Diphenhydramine 1 tab PO HS PRN 11/12/17 06/24/18 [Tylenol PM Extra Strength] Dicyclomine HCl 10 mg PO AC-TID 11/12/17 06/24/18 Melatonin 3 mg PO HS 11/12/17 06/24/18 Aspirin 81 mg PO HS 06/24/18 06/24/18 Previous Rx's Medication Instructions Recorded Nitroglycerin Sl Tabs [Nitrostat] 0.4 mg SUBLINGUAL Q5M PRN #30 tab 10/04/13 Atorvastatin [Lipitor] 20 mg PO HS tab 11/13/17 Metoprolol Tartrate [Lopressor] 25 mg PO BID #60 tablet 11/13/17 Isosorbide Mononitrate ER [Imdur] 30 mg PO DAILY #30 tab.er.24h 06/25/18 Losartan-Hctz 50-12.5 mg [Hyzaar 1 each PO DAILY #30 tab 06/25/18 50-12.5] Amoxicillin/Potassium Clav 1 tab PO Q12HR 1 Days #14 tab 09/27/20 [Augmentin 875-125 Tablet] Fluticasone Nasal [place] [Flonase 2 spr EA NOSTRIL DAILY #1 bottle 09/27/20 Nasal [place]] HYDROcodone/APAP 5-325MG [Delta 5] 1 each PO Q6HR PRN #12 tab 09/27/20 Ketorolac [Toradol] 10 mg PO Q8HR #15 tab 09/27/20 Allergies Allergy/AdvReac Type Severity Reaction Status Date / Time adhesive Allergy Rash/Hives Verified 09/27/20 13:11 latex Allergy Rash/Hives Verified 09/27/20 13:11 Review of Systems ROS Statement: Those systems with pertinent positive or pertinent negative responses have been documented in the HPI. ROS Other: All systems not noted in ROS Statement are negative. Past Medical History Past Medical History: GERD/Reflux, Hyperlipidemia, Hypertension History of Any Multi-Drug Resistant Organisms: None Reported Past Surgical History: Back Surgery, Cholecystectomy, Heart Catheterization, Hysterectomy Additional Past Surgical History / Comment(s): reduction of pelvic fracture. Past Anesthesia/Blood Transfusion Reactions: No Reported Reaction Past Psychological History: No Psychological Hx Reported Smoking Status: Never smoker Past Alcohol Use History: Occasional Past Drug Use History: None Reported - Past Family History Father Family Medical History: Hypertension Additional Family Medical History / Comment(s): States Father had stents General Exam Limitations: no limitations Course Vital Signs 09/27/20 13:08 Temperature 97.9 F Pulse Rate 57 L Respiratory 18 Rate Blood Pressure 177/62 O2 Sat by Pulse 97 Oximetry Medical Decision Making - Medical Decision Making Upon arrival patient is placed into [place] [id number]. A thorough history and physical exam is performed. Laboratory studies are conducted. Patient went for a CT of her internal auditory canal. I did speak with Dr. Olmos in regards the results. Patient was given a dose of Toradol with improvement in her pain. She is requesting a second dose for which she is given. I did discuss diagnosis, differential and treatment options. At this time the patient will be placed on Delta and Toradol. She is to alternate taking the medications for pain. I will also place the patient on amoxicillin and she is to use Flonase daily. I also recommended an oral antihistamine. She has Benadryl at home which she is to take every 6 hours. She does follow up with Dr. Car at her scheduled appointment on the . Return to the emergency room for any worsening symptoms. Patient agreed to the treatment plan was discharged home and so condition - Lab Data Result diagrams: 09/27/20 14:14 09/27/20 14:14 Lab Results 09/27/20 09/27/20 Range/Units 14:14 14:14 WBC 7.9 (3.8-10.6) k/uL RBC 4.44 (3.80-5.40) m/uL Hgb 15.1 (11.4-16.0) gm/dL Hct 43.2 (34.0-46.0) % MCV 97.2 (80.0-100.0) fL MCH 34.1 (25.0-35.0) pg MCHC 35.1 (31.0-37.0) g/dL RDW 13.3 (11.5-15.5) % Plt Count 159 (150-450) k/uL MPV 9.6 Neutrophils % 53 % Lymphocytes % 32 % Monocytes % 6 % Eosinophils % 6 % Basophils % 1 % Neutrophils # 4.2 (1.3-7.7) k/uL Lymphocytes # 2.6 (1.0-4.8) k/uL Monocytes # 0.5 (0-1.0) k/uL Eosinophils # 0.5 (0-0.7) k/uL Basophils # 0.0 (0-0.2) k/uL Sodium 140 (137-145) mmol/L Potassium 3.8 (3.5-5.1) mmol/L Chloride 103 (98-107) mmol/L Carbon Dioxide 28 (22-30) mmol/L Anion Gap 9 mmol/L BUN 20 H (7-17) mg/dL Creatinine 0.66 (0.52-1.04) mg/dL Est GFR (CKD-EPI)AfAm >90 (>60 ml/min/1.73 sqM) Est GFR (CKD-EPI)NonAf 84 (>60 ml/min/1.73 sqM) Glucose 104 H (74-99) mg/dL Calcium 9.5 (8.4-10.2) mg/dL Total Bilirubin 0.2 (0.2-1.3) mg/dL AST 28 (14-36) U/L ALT 19 (4-34) U/L Alkaline Phosphatase 47 (38-126) U/L Total Protein 7.7 (6.3-8.2) g/dL Albumin 4.7 (3.5-5.0) g/dL Disposition Clinical Impression: Right ear pain Disposition: HOME SELF-CARE Condition: Stable Instructions (If sedation given, give patient instructions): Earache (ED) Additional Instructions: Please follow up with Dr. Miner at your scheduled appointment. Alternate taking the Toradol and Delta for pain control. Use the Flonase daily. Take the antibiotic as directed. Return to the emergency room for any new or worsening symptoms Prescriptions: Amoxicillin/Potassium Clav [Augmentin 875-125 Tablet] 1 tab PO Q12HR 1 Days #14 tab Fluticasone Nasal [place] [Flonase Nasal [place]] 2 spr EA NOSTRIL DAILY #1 bottle HYDROcodone/APAP 5-325MG [Delta 5] 1 each PO Q6HR PRN #12 tab PRN Reason: Pain Ketorolac [Toradol] 10 mg PO Q8HR #15 tab Is patient prescribed a controlled substance at d/c from ED?: Yes When asked, does pt state using other controlled substances?: No If prescribed controlled substance>3 days was MAPS reviewed?: Prescribed <3 Days If opioid is for acute pain is fill amount 7 days or less?: Yes If Rx opioid, was Start Talking consent form obtained?: Yes Referrals: Vicente Knutson MD [Primary Care Provider] - 1-2 days Anthony Masterson MD [STAFF PHYSICIAN] - 1-2 days Time of Disposition: 15:39
[2020-09-27] MEDS ORDERED: MECLIZINE 12.5 MG TAB PO STA (15:42)
== END 2020-09-27 16:13 | disposition home or self-care (01) ==
LOC: EC 12:48
DX: H92.01 Otalgia, right ear (principal); R42 Dizziness and giddiness; I10 Essential (primary) hypertension; E78.5 Hyperlipidemia, unspecified; K21.9 Gastro-esophageal reflux disease without esophagitis; Z79.82 Long term (current) use of aspirin
CPT/HCPCS: 36415; 80053; 85025; 70481; 99284; 96374; 96375; 96376; J2405; J1885; Q9967

== ENCOUNTER → 2021-12-10 | Outpatient (CLI) | payer MEDICARE, BC ==
[2021-12-10 11:27] LABS: Basophils # (A) 0.1 k/uL (0-0.2); Basophils % (A) 1 %; Eosinophils # (A) 0.3 k/uL (0-0.7); Eosinophils % (A) 5 %; HCT 42.5 % (34.0-46.0); HGB 14.5 gm/dL (11.4-16.0); Lymphocytes # (A) 1.6 k/uL (1.0-4.8); Lymphocytes % (A) 28 %; MCHC 34.1 g/dL (31.0-37.0); MCV 93.9 fL (80.0-100.0); Mean Platelet Volume 10.2; Monocytes # (A) 0.4 k/uL (0-1.0); Monocytes % (A) 7 %; Neutrophils # (A) 3.1 k/uL (1.3-7.7); Neutrophils % (A) 56 %; Platelet Count 126 k/uL (150-450); RBC 4.53 m/uL (3.80-5.40); RDW 12.7 % (11.5-15.5); WBC 5.5 k/uL (3.8-10.6)
[2021-12-10 11:48] LABS: ALT 24 U/L (4-34); AST 28 U/L (14-36); African American GFR (CKD) >90 (>60 ml/min/1.73 sqM); Albumin 4.3 g/dL (3.5-5.0); Albumin/Globulin Ratio 1.6; Alkaline Phosphatase 56 U/L (38-126); Anion Gap 8 mmol/L; Blood Urea Nitrogen 19 mg/dL (7-17); C Reactive Protein 1.1 mg/dL (<1.0); Calcium 8.9 mg/dL (8.4-10.2); Carbon Dioxide 28 mmol/L (22-30); Chloride 104 mmol/L (98-107); Globulin 2.7 g/dL; Glucose 90 mg/dL (74-99); Non-African American GFR(CKD) 82 (>60 ml/min/1.73 sqM); Potassium 3.9 mmol/L (3.5-5.1); Sodium 140 mmol/L (137-145); Total Bilirubin 0.3 mg/dL (0.2-1.3)
--- NOTE | 2021-12-10 13:24 | CT ---
EXAMINATION TYPE: CT abdomen pelvis w con DATE OF EXAM: 12/10/2021 COMPARISON: 11/12/2017 CT abdomen and pelvis, 11/12/2017 CT chest HISTORY: diarrhea CT DLP: 457 mGycm Automated exposure control for dose reduction was used. CONTRAST: CT scan of the abdomen pelvis is performed with IV Contrast, patient injected with 70 mL of Isovue 30 0. FINDINGS- LUNG BASES- 3 mm nodule axial image 4) likely benign in stable from prior CT scan. LIVER/GB- postcholecystectomy changes PANCREAS- No gross abnormality is seen. SPLEEN- small accessory spleen noted. ADRENALS- No gross abnormality is seen. KIDNEYS/BLADDER-There is a hypoattenuating focus measuring 12 mm in the anterior cortex the right kid khanh likely representing cyst, subcentimeter focus within the upper pole the left kidney measures only 3 to 4 mm. 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 BOWEL- bowel gas pattern is nonspecific destruction. No significant contrast seen within colon. Judi ined debris noted. These factors limit assessment. Just distal to the ileocecal valve there is mild w all thickening cecum. LYMPH NODES- No greater than 1cm abdominal or pelvic lymph nodes are appreciated. OSSEOUS STRUCTURES- Degenerative disc changes, facet arthropathy noted in the lower lumbar spine. OTHER- aorta normal caliber. Bilateral fat-containing inguinal hernias greater on the left bladder nondistended with no discrete IMPRESSION- 1. Mild concentric cecal wall thickening just distal to the ileocecal valve. Best noted on axial imag e 56 and coronal images 33. Finding nonspecific and could be correlated with either virtual colonosco py or standard colonoscopy as clinically warranted to exclude mucosal lesion. 2. Postcholecystectomy changes. 3. Small 3 mm benign-appearing nodule right upper lobe axial image 4. This is retrospectively stable dating back to CT scan of the chest dated 11/12/2017 and therefore has been stable for a 4 year period and therefore benign.
== END | disposition home or self-care (01) ==
LOC: RADCTMAIN 09:42
PROVIDERS: ATTEND Internal Medicine Gastroenterology
DX: R91.1 Solitary pulmonary nodule (principal)
CPT/HCPCS: 80053; 85025; 86140; 74177; 36415; Q9967

== ENCOUNTER 2022-01-08 11:05 | Day surgery (SDC) | payer MEDICARE, BC ==
[~2022-01-08 11:05] MED LIST: LACTATED RINGERS 1,000 ML IV SCH
[2022-01-08] MEDS ORDERED: LACTATED RINGERS 1,000 ML IV ONE (12:30)
[2022-01-08] MEDS ORDERED: ONDANSETRON 4 MG/2 ML VIAL ONE (12:41)
[2022-01-08 12:49] VITALS: TEMP 97
[2022-01-08] MEDS ORDERED: LIDOCAINE 2% INJ 20 MG/ML (2 ML VIAL) ONE (13:22)
[2022-01-08] MEDS ORDERED: PROPOFOL 10 MG/ML 20 ML VIAL IV ONE (13:22)
--- NOTE | 2022-01-08 13:48 | P.PCN ---
Date of Procedure: 01/08/22 Procedure(s) Performed: BRIEF HISTORY: Patient is a 81-year-old pleasant white female scheduled for an elective colonoscopy as a part of evaluation of chronic diarrhea for the last 2 months duration. PROCEDURE PERFORMED: Colonoscopy with random biopsy. PREOPERATIVE DIAGNOSIS: Chronic diarrhea of 2 months duration. IV sedation per Anesthesia. PROCEDURE: After informed consent was obtained, the patient, was brought into the endoscopy unit. IV sedation was administered by Anesthesia under continuous monitoring. Digital rectal examination was normal. Initially the Olympus CF-160 flexible video pediatric colonoscope was then inserted in the rectum, gradually advanced into the cecum with moderate to severe difficulty. Careful examination was performed as the scope was gradually being withdrawn. Ileocecal valve and the appendiceal orifice were visualized and appeared normal. Prep was excellent . Mucosa of the cecum, ascending colon, transverse colon, descending colon, sigmoid colon, and rectum appeared normal. Random biopsies were done from ascending and descending colon to rule out microscopic/collagenous colitis. Retroflexion was performed in the rectum and no lesions were seen. Scattered sigmoid diverticulosis. The patient tolerated the procedure well. IMPRESSION: Normal-appearing colon from rectum to cecum no evidence of colorectal neoplasia Scattered sigmoid diverticulosis . RECOMMENDATIONS: Findings of this examination were discussed with the patient as well as a family. She was advised to follow with the biopsy results. Use [id number] Imodium as needed. ].
[2022-01-08 14:07] VITALS: BP 120/61; PULSE 72; RESP 16
== END 2022-01-08 15:10 | disposition home or self-care (01) ==
LOC: ORWHC2ENDO 11:05
PROVIDERS: ATTEND Internal Medicine Gastroenterology
DX: K57.30 Diverticulosis of large intestine without perforation or abscess without bleeding (principal); R19.7 Diarrhea, unspecified; I10 Essential (primary) hypertension; E78.5 Hyperlipidemia, unspecified; M19.90 Unspecified osteoarthritis, unspecified site; E07.9 Disorder of thyroid, unspecified; K21.9 Gastro-esophageal reflux disease without esophagitis; Z86.73 Personal history of transient ischemic attack (TIA), and cerebral infarction without residual deficits; Z79.899 Other long term (current) drug therapy; Z91.040 Latex allergy status
CPT/HCPCS: 88305; 45380; J2704; J2001

== ENCOUNTER 2022-06-23 08:29 | Emergency (ER) | payer MEDICARE, BC ==
[2022-06-23] MEDS ORDERED: methylPREDNISolone SOD SUCCI 125 MG/2 ML VIAL IM ONE (10:09)
--- NOTE | 2022-06-23 10:11 | ED ---
ENT HPI - General Chief complaint: ENT Stated complaint: difficulty swallowing Time Seen by Provider: 06/23/22 09:19 Source: patient, RN notes reviewed Mode of arrival: ambulatory Limitations: no limitations - History of Present Illness Initial comments: Patient is an 81-year-old female presenting to the emergency room swollen lymph nodes in the neck and sore throat that has been ongoing since Friday. She also reports hoarse voice and generalized malaise. She states that due to the swelling she is having difficulty swallowing but is able to take in food and fluids. She denies any heartburn symptoms. She denies any cough, congestion, ear pain, headache, dizziness, chest pain, shortness breath, abdominal pain, nausea, vomiting, fevers or chills. She denies any known exposure to any upper respiratory viruses or exposure to strep throat. She has a past medical history significant for GERD, hypertension, hyperlipidemia, osteoarthritis and psoriasis. - Related Data Home Medications Medication Instructions Recorded Confirmed Omeprazole [PriLOSEC] 20 mg PO AC-BID@0800,1200 10/03/13 01/08/22 Estradiol 1 mg PO DAILY 07/11/15 01/08/22 Acetaminophen/Diphenhydramine 2 tab PO HS 11/12/17 01/08/22 [Tylenol PM Extra Strength] Aspirin EC [Ecotrin Low Dose] 81 mg PO HS 06/09/21 01/08/22 Atorvastatin [Lipitor] 20 mg PO HS 06/09/21 01/08/22 Dicyclomine [Bentyl] 40 mg PO AC-BID 06/09/21 01/08/22 hydroCHLOROthiazide 12.5 mg PO DAILY 06/09/21 01/08/22 Calcium Carbonate [Calcium] 1,200 mg PO DAILY 01/02/22 01/08/22 Unk Multi Vitamin 1 tab PO DAILY 01/02/22 01/08/22 Unk Preservision 1 tab PO DAILY 01/02/22 01/08/22 Unk Vit E /[place] 3 1 tab PO DAILY 01/02/22 01/08/22 Previous Rx's Medication Instructions Recorded Losartan [Cozaar] 100 mg PO DAILY #30 tab 06/10/21 predniSONE [Deltasone] 20 mg PO BID 3 Days #6 tab 06/23/22 Allergies Allergy/AdvReac Type Severity Reaction Status Date / Time adhesive Allergy Rash/Hives Verified 06/23/22 08:42 latex Allergy Rash/Hives Verified 06/23/22 08:42 Review of Systems ROS Statement: Those systems with pertinent positive or pertinent negative responses have been documented in the HPI. ROS Other: All systems not noted in ROS Statement are negative. Past Medical History Past Medical History: GERD/Reflux, Hyperlipidemia, Hypertension, Osteoarthritis (OA), Skin Disorder Additional Past Medical History / Comment(s): arthritis all over , psoriasis usually on lower legs. face and arms when flaring. History of Any Multi-Drug Resistant Organisms: None Reported Past Surgical History: Back Surgery, Cholecystectomy, Heart Catheterization, Hysterectomy Additional Past Surgical History / Comment(s): reduction of pelvic fracture. bilateral cataract removal with lens implant Past Anesthesia/Blood Transfusion Reactions: Postoperative Nausea & Vomiting (PONV) Additional Past Anesthesia/Blood Transfusion Reaction / Comment(s): no blood transfusions Past Psychological History: No Psychological Hx Reported Smoking Status: Never smoker - Past Family History Father Family Medical History: Hypertension Additional Family Medical History / Comment(s): States Father had stents Mother Family Medical History: Hypertension General Exam Limitations: no limitations General appearance: alert, in no apparent distress Head exam: Present: atraumatic, normocephalic, normal inspection Eye exam: Present: normal appearance, PERRL, EOMI. Absent: scleral icterus, conjunctival injection, periorbital swelling ENT exam: Present: TM's normal bilaterally Expanded Ear exam: Present: normal external inspection Mouth exam: Present: normal external inspection, other (Hoarse voidce). Absent: drooling Throat exam: tonsillar erythema (mild), tonsillomegaly. negative: tonsillar exudate Neck exam: Present: tenderness, full ROM, lymphadenopathy. Absent: meningismus Respiratory exam: Present: normal lung sounds bilaterally. Absent: respiratory distress, wheezes, rales, rhonchi, stridor Cardiovascular Exam: Present: regular rate, normal rhythm, normal heart sounds. Absent: systolic murmur, diastolic murmur, rubs, gallop, clicks GI/Abdominal exam: Present: soft, normal bowel sounds. Absent: distended, tenderness, guarding, rebound, rigid Extremities exam: Present: normal inspection. Absent: pedal edema, joint swelling Back exam: Present: normal inspection Neurological exam: Present: alert, oriented X3, CN II-XII intact Psychiatric exam: Present: normal affect, normal mood Skin exam: Present: warm, dry, intact, normal color. Absent: rash Course Vital Signs 06/23/22 06/23/22 08:42 11:25 Temperature 98.4 F 97.5 F L Pulse Rate 54 L 59 L Respiratory 18 16 Rate Blood Pressure 165/56 129/60 O2 Sat by Pulse 97 99 Oximetry Medical Decision Making - Medical Decision Making Was pt. sent in by a medical professional or institution (, PA, JAVA LEAD ENGINEER, urgent care, hospital, or longterm...) When possible be specific @ -No Did you speak to anyone other than the patient for history (EMS, parent, family, police, friend...)? What history was obtained from this source @ -No Did you review nursing and triage notes (agree or disagree)? Why? @ -I reviewed and agree with nursing and triage notes Were old charts reviewed (outside hosp., previous admission, EMS record, old EKG, old radiological studies, urgent care reports/EKG's, longterm records)? Report findings @ -No old charts were reviewed Differential Diagnosis (chest pain, altered mental status, abdominal pain women, abdominal pain men, vaginal bleeding, weakness, fever, dyspnea, syncope, headache, dizziness, GI bleed, back pain, seizure, CVA, palpatations, mental health, musculoskeletal)? @ -Differential Upper respiratory symptoms: Pneumonia, viral URI, bronchitis, otitis, sinusitis, streptococcal pharyngitis, mononucleosis, peritonsillar Abscess, retropharyngeal Abscess, epiglottitis, this is not meant to be an all-inclusive list. EKG interpreted by me (3pts min.). @ -None done X-rays interpreted by me (1pt min.). @ -None done CT interpreted by me (1pt min.). @ -None done U/S interpreted by me (1pt. min.). @ -None done What testing was considered but not performed or refused? (CT, X-rays, U/S, labs)? Why? @ -None What meds were considered but not given or refused? Why? @ -Analgesics offered and declined. Did you discuss the management of the patient with other professionals (professionals i.e. , [employer], JAVA LEAD ENGINEER, lab, RT, psych nurse, clinical social work aide, work order clerk, teacher, aviation safety officer, case planner)? Give summary @ -No Was smoking cessation discussed for >3mins.? @ -No Was critical care preformed (if so, how long)? @ -No Were there social determinants of health that impacted care today? How? (Homelessness, low income, unemployed, alcoholism, drug addiction, transportation, low edu. Level, literacy, decrease access to med. care, skilled nursing, rehab)? @ -No Was there de-escalation of care discussed even if they declined (Discuss DNR or withdrawal of care, Hospice)? DNR status @ -No What co-morbidities impacted this encounter? (DM, HTN, Smoking, COPD, CAD, Cancer, CVA, ARF, Chemo, Hep., AIDS, mental health diagnosis, sleep apnea, morbid obesity)? @ -None Was patient admitted / discharged? Hospital course, mention meds given and route, prescriptions, significant lab abnormalities, going to OR and other pertinent info. @ -81-year-old female presenting to the emergency room swollen lymph nodes in the neck and sore throat that has been ongoing since Friday. She also reports hoarse voice and generalized malaise. She states that due to the swelling she is having difficulty swallowing but is able to take in food and fluids. She denies any heartburn symptoms. Due to swelling and pain will give IM Solu-Medrol. Will obtain swabs for COVID, influenza, RSV and strep no indication for serum laboratory studies or diagnostic imaging in the setting of lack of systemic symptoms. Pain improved after steroid. COVID, RSV, influenza and strep all negative. No indication for further imaging or laboratory studies at this time. Advised watchful waiting recommendation in the absence of positive strep culture. Will continue oral steroids for 3 days to help reduce swelling advising use of Tylenol for pain as needed in the interim. Strict return parameters with signs and symptoms requiring return to the emergency room discussed at length. Advise follow-up with primary care provider. Good hydration encouraged. Will discharge home in stable condition on oral steroid regimen for tonsillopharyngitis advising follow-up with primary care provider. Undiagnosed new problem with uncertain prognosis? @ -No Drug Therapy requiring intensive monitoring for toxicity (Heparin, Nitro, Insulin, Cardizem)? @ -No Were any procedures done? @ -No Diagnosis/symptom? @ -Tonsillopharyngitis Acute, or Chronic, or Acute on Chronic? @ -Acute Uncomplicated (without systemic symptoms) or Complicated (systemic symptoms)? @ -Uncomplicated Side effects of treatment? @ -No Exacerbation, Progression, or Severe Exacerbation? @ -No Poses a threat to life or bodily function? How? (Chest pain, USA, CT, pneumonia, PE, COPD, DKA, ARF, appy, cholecystitis, CVA, Diverticulitis, Homicidal, Suicidal, threat to staff... and all critical care pts) @ -No Case discussed with Dr. Fox. - Lab Data Lab Results 06/23/22 06/23/22 Range/Units 10:03 10:03 Influenza Type A (PCR) Not Detected (Not Detectd) Influenza Type B (PCR) Not Detected (Not Detectd) RSV (PCR) Not Detected (Not Detectd) SARS-CoV-2 (PCR) Not Detected (Not Detectd) Group A Strep (PCR) NOT DETECTED (Not Detectd) Disposition Clinical Impression: Tonsillopharyngitis Disposition: HOME SELF-CARE Condition: Stable Instructions (If sedation given, give patient instructions): Tonsillitis (ED) Additional Instructions: Please complete course of steroid as prescribed. Utilize Tylenol as needed for pain while on steroids. Drink plenty of fluids. Please follow-up with your primary care provider. Please return to the Emergency Department if symptoms worsen or any other concerns. Prescriptions: predniSONE [Deltasone] 20 mg PO BID 3 Days #6 tab Is patient prescribed a controlled substance at d/c from ED?: No Referrals: Vicente Knutson MD [Primary Care Provider] - 1-2 days Time of Disposition: 11:18
[2022-06-23 11:31] VITALS: BP 129/60; PULSE 59; RESP 16; TEMP 97.5
== END 2022-06-23 11:31 | disposition home or self-care (01) ==
LOC: EC 08:29
DX: B00.2 Herpesviral gingivostomatitis and pharyngotonsillitis (principal); K21.9 Gastro-esophageal reflux disease without esophagitis; E78.5 Hyperlipidemia, unspecified; M19.90 Unspecified osteoarthritis, unspecified site; I10 Essential (primary) hypertension; Z79.899 Other long term (current) drug therapy; Z79.1 Long term (current) use of non-steroidal anti-inflammatories (NSAID); Z91.09 Other allergy status, other than to drugs and biological substances; Z91.040 Latex allergy status; Z20.822 Contact with and (suspected) exposure to COVID-19
CPT/HCPCS: 87651; 87636; 99284; 96372; J2930

== ENCOUNTER → 2022-08-08 | Outpatient (CLI) | payer MEDICARE, BC ==
--- NOTE | 2022-08-08 11:47 | BD ---
EXAMINATION TYPE: Axial Bone Density DATE OF EXAM: 08/08/2022 CLINICAL HISTORY: 82 year old Female. ICD-10 CODE: M89.9 DISORDER OF BONE, UNSPECIFIED Height: 61 Weight: 134.3 FRAX RISK QUESTIONS: Alcohol (3 or more units per day): no Family History (Parent hip fracture): yes Glucocorticoids (More than 3mos): no (Ex: prednisone, prednisolone, methylprednisolone, dexamethasone, and hydrocortisone). History of Fracture in Adulthood: yes Secondary Osteoporosis: 1. Type 1 Diabetes: no 2. Hyperthyroidism: no 3. Menopause before 45: no 4. Malnutrition: no 5. Chronic liver disease: no Rheumatoid Arthritis: no Current Tobacco Use: no RISK FACTORS HISTORY OF: History of Wrist Fracture: left wrist-30 years ago When: Surgery to Spine/Hip(right/left)/Wrist (right/left): no Family History of Osteoporosis: yes Active: yes Diet low in dairy products/other sources of calcium: yes Postmenopausal woman: yes Lost more than 2 inches in height since high school: yes MEDICATIONS: Additional History: EXAM MEASUREMENTS: Bone mineral densitometry was performed using the [employer]ph[employer] System. Bone mineral density as measured about the Lumbar spine is: ----- L1-L4(G/cm2): 0.931 T Score Values are as follows: ----- L1: -2.5 ----- L2: -2.9 ----- L3: -2.4 ----- L4: -0.9 ----- L1-L4: -2.1 Z Score Values are as follows: ----- L1: -0.5 ----- L2: -0.9 ----- L3: -0.4 ----- L4: 1.0 ----- L1-L4: -0.1 Bone mineral density : baseline Bone mineral density about the R hip (g/cm2): 0.811 Bone mineral density about the L hip (g/cm2): 0.869 T Score values are as follows: -----R Neck: -1.8 -----L Neck: -1.8 -----R Total: -1.6 -----L Total: -1.1 Z Score values are as follows: -----R Neck: 0.5 -----L Neck: 0.4 -----R Total: 0.6 -----L Total: 1.0 Bone mineral density : baseline FRAX%s: The graph provided illustrates a 36.9% chance for a major osteoporotic fx and a 22.5% chance for the hips probability for fx in 10 years time. IMPRESSION: Osteopenia (T Score between -2.5 and -1). There is slightly increased risk of fracture and the patient may be considered for treatment. Re-Screen 2-5 years. NOTE: T-SCORE=SD OF THE YOUNG ADULT MEAN.
== END | disposition home or self-care (01) ==
LOC: RADBDWWP 10:36
PROVIDERS: ATTEND Family Medicine
DX: M81.0 Age-related osteoporosis without current pathological fracture (principal); M85.89 Other specified disorders of bone density and structure, multiple sites
CPT/HCPCS: 77080

== ENCOUNTER → 2022-10-03 | Outpatient (CLI) | payer MEDICARE, BC ==
--- NOTE | 2022-10-04 10:07 | MM ---
Reason for Exam: Screening (asymptomatic). Last screening mammogram was performed 12 month(s) ago. Patient History: Menarche at age 12. First Full-Term at age 26. Left ovary removed at age 47. Right ovary removed at age 47. Hysterectomy at age 47. Postmenopausal. Currently using Estrogen, beginning at age 47 for 24 years. 03/04/2014, Benign Core Biopsy on the right side. Risk Values: Daija 5 year model risk: 2.3%. NCI Lifetime model risk: 3.3%. Prior Study Comparison: 09/02/2019 Bilateral Screening Mammogram, [facility]. 09/26/2020 Bilateral Screening Mammogram, [facility]. 10/02/2021 Bilateral MG 3D screening mammo w/cad, [facility]. Tissue Density: There are scattered fibroglandular densities. Findings: Analyzed By CAD. Chronic nodularity laterally and anteriorly on the right. Additional microclip on the right from prior biopsy. There is no suspicious group of microcalcifications or new suspicious mass in either breast. Overall Assessment: Benign, BI-RAD 2 Management: Screening Mammogram of both breasts in 1 year. . Patient should continue monthly self-breast exams. A clinical breast exam by your physician is recommended on an annual basis. This exam should not preclude additional follow-up of suspicious palpable abnormalities. Note on Daija scores and lifetime risk: 1. A Daija score greater than 3% is considered moderate risk. If this is the case, consider specialist referral to assess eligibility for a risk reducing agent. 2. If overall lifetime risk for the development of breast cancer is 20% or higher, the patient may qualify for future screening with alternating mammogram and breast MRI. Electronically signed and approved by: Martha Hills M.D. Radiologist
== END | disposition home or self-care (01) ==
LOC: RADMAMWWP 16:31
PROVIDERS: ATTEND Family Medicine
DX: Z12.31 Encounter for screening mammogram for malignant neoplasm of breast (principal); Z78.0 Asymptomatic menopausal state
CPT/HCPCS: 77063; 77067

== ENCOUNTER → 2023-10-17 | Outpatient (CLI) | payer MEDICARE, BC ==
--- NOTE | 2023-10-19 11:37 | MM ---
Reason for Exam: Screening (asymptomatic). Last mammogram was performed 1 year(s) and 1 month(s) ago. Patient History: Menarche at age 12. First Full-Term at age 26. Left ovary removed at age 47. Right ovary removed at age 47. Hysterectomy at age 47. Postmenopausal. Currently using Estrogen, starting at age 47. 03/04/2014, Benign Core Biopsy on the right side. Paternal aunt had ovarian cancer at or over age 50. Risk Values: Daija 5 year model risk: 2.3%. NCI Lifetime model risk: 3.0%. Prior Study Comparison: 03/01/2016 Bilateral Screening Mammogram, [facility]. 05/16/2017 Bilateral Screening Mammogram, [facility]. 06/11/2018 Bilateral Screening Mammogram, [facility]. 09/02/2019 Bilateral Screening Mammogram, [facility]. 09/26/2020 Bilateral Screening Mammogram, [facility]. 10/02/2021 Bilateral MG 3D screening mammo w/cad, [facility]. 10/03/2022 Bilateral MG 3D screening mammo w/cad, [facility]. Tissue Density: There are scattered areas of fibroglandular density. Findings: Analyzed By CAD. Right breast: There is no suspicious group of microcalcifications or new suspicious mass. Left breast: There is no suspicious group of microcalcifications or new suspicious mass. Overall Assessment: Negative, BI-RAD 1 Management: Screening Mammogram of both breasts in [address] [facility] will attempt to contact patient to return for supplemental views and ultrasound if indicated. Patient should continue monthly self-breast exams. A clinical breast exam by your physician is recommended on an annual basis. This exam should not preclude additional follow-up of suspicious palpable abnormalities. Note on Daija scores and lifetime risk: 1. A Daija score greater than 3% is considered moderate risk. If this is the case, consider specialist referral to assess eligibility for a risk reducing agent. 2. If overall lifetime risk for the development of breast cancer is 20% or higher, the patient may qualify for future screening with alternating mammogram and breast MRI. Electronically signed and approved by: Christopher Corado DO
== END | disposition home or self-care (01) ==
LOC: RADMAMWWP 12:29
PROVIDERS: ATTEND Family Medicine
DX: Z12.31 Encounter for screening mammogram for malignant neoplasm of breast
CPT/HCPCS: 77063; 77067

== ENCOUNTER 2024-02-27 21:53 | Inpatient (IN) | payer MEDICARE, BC ==
[2024-02-27 22:27] LABS: Basophils % (A) 0 %; Eosinophils # (A) 0.6 k/uL (0-0.7); Eosinophils % (A) 7 %; HCT 39.1 % (34.0-46.0); HGB 13.5 gm/dL (11.4-16.0); Lymphocytes # (A) 2.8 k/uL (1.0-4.8); Lymphocytes % (A) 33 %; MCH 32.2 pg (25.0-35.0); MCHC 34.5 g/dL (31.0-37.0); MCV 93.3 fL (80.0-100.0); Mean Platelet Volume 9.9; Monocytes # (A) 0.4 k/uL (0-1.0); Monocytes % (A) 5 %; Neutrophils # (A) 4.6 k/uL (1.3-7.7); Neutrophils % (A) 53 %; Platelet Count 151 k/uL (150-450); RBC 4.19 m/uL (3.80-5.40); RDW 12.5 % (11.5-15.5); WBC 8.6 k/uL (3.8-10.6)
--- NOTE | 2024-02-27 22:30 | ED ---
SOB HPI - General Chief Complaint: Shortness of Breath Stated Complaint: Chest pain SOB Time Seen by Provider: 02/27/24 21:59 Source: patient, EMS Mode of arrival: EMS Limitations: no limitations - History of Present Illness Initial Comments: This patient is an 83-year-old woman who arrives here by ambulance to have evaluation for shortness of breath and chest pain. The symptoms had come on approximately 2 hours ago the patient was lying in bed watching television. She noticed that she was feeling short of breath. She was feeling shaky and dizzy. The patient also experienced chest pain radiating to the back. She does note that she has had a cough going on for probably about 3 weeks. When the symptoms continued EMS was called and brought her here. She states they did give nitroglycerin which may have reduced things a little bit. MD Complaint: shortness of breath, chest pain Onset/Timin -: hour(s) Radiation: back Severity: moderate Quality: dull Consistency: now resolved Improves With: medication Worsens With: nothing Context: recent URI Treatments Prior to Arrival: oxygen, nitroglycerin - Related Data Home Oxygen Therapy: No Home Medications Medication Instructions Recorded Confirmed Omeprazole [PriLOSEC] 20 mg PO AC-BID 10/03/13 02/28/24 Estradiol 1 mg PO DAILY 07/11/15 02/28/24 Aspirin EC [Ecotrin Low Dose] 81 mg PO HS 06/09/21 02/28/24 Atorvastatin [Lipitor] 20 mg PO HS 06/09/21 02/28/24 hydroCHLOROthiazide 12.5 mg PO DAILY 06/09/21 02/28/24 Previous Rx's Medication Instructions Recorded Losartan [Cozaar] 100 mg PO DAILY #30 tab 06/10/21 Isosorbide Mononitrate ER [Imdur] 30 mg PO DAILY #30 tab 03/01/24 Allergies Allergy/AdvReac Type Severity Reaction Status Date / Time adhesive Allergy Rash/Hives Verified 03/12/24 04:01 latex Allergy Rash/Hives Verified 03/12/24 04:01 Review of Systems ROS Statement: Those systems with pertinent positive or pertinent negative responses have been documented in the HPI. ROS Other: All systems not noted in ROS Statement are negative. Constitutional: Denies: fever, chills, weakness Respiratory: Reports: as per HPI, cough, dyspnea. Denies: wheezes, hemoptysis Cardiovascular: Reports: as per HPI, chest pain. Denies: palpitations, orthopnea, edema, syncope Gastrointestinal: Denies: abdominal pain, nausea, vomiting, diarrhea Genitourinary: Denies: dysuria, hematuria Musculoskeletal: Denies: back pain Skin: Denies: rash Neurological: Denies: headache, weakness Psychiatric: Reports: anxiety Past Medical History Past Medical History: GERD/Reflux, Hyperlipidemia, Hypertension, Osteoarthritis (OA), Skin Disorder Additional Past Medical History / Comment(s): arthritis all over , psoriasis usually on lower legs. face and arms when flaring. History of Any Multi-Drug Resistant Organisms: None Reported Past Surgical History: Back Surgery, Cholecystectomy, Heart Catheterization, Hysterectomy Additional Past Surgical History / Comment(s): reduction of pelvic fracture. bilateral cataract removal with lens implant Past Anesthesia/Blood Transfusion Reactions: Postoperative Nausea & Vomiting (PONV) Additional Past Anesthesia/Blood Transfusion Reaction / Comment(s): no blood transfusions Past Psychological History: No Psychological Hx Reported Smoking Status: Never smoker - Past Family History Father Family Medical History: Hypertension Additional Family Medical History / Comment(s): States Father had stents Mother Family Medical History: Hypertension General Exam Limitations: no limitations General appearance: alert, in no apparent distress Head exam: Present: atraumatic, normocephalic Eye exam: Present: normal appearance. Absent: scleral icterus, conjunctival injection Neck exam: Present: normal inspection Respiratory exam: Present: normal lung sounds bilaterally. Absent: respiratory distress, wheezes, rales, rhonchi, stridor Cardiovascular Exam: Present: regular rate, normal rhythm, normal heart sounds. Absent: systolic murmur, diastolic murmur, rubs, gallop GI/Abdominal exam: Present: soft. Absent: distended, tenderness, guarding, rebound, rigid, mass Extremities exam: Present: normal inspection, normal capillary refill. Absent: pedal edema, calf tenderness Back exam: Present: normal inspection. Absent: CVA tenderness (R), CVA tenderness (L) Neurological exam: Present: alert Skin exam: Present: warm, dry, intact, normal color. Absent: rash Course Vital Signs 02/27/24 02/27/24 02/28/24 21:59 23:00 00:27 Temperature 97.8 F Pulse Rate 64 52 L 52 L Pulse Rate [ Pulse Oximetery ] Respiratory 18 17 17 Rate Blood Pressure 159/124 132/51 132/54 Blood Pressure [Right Arm] O2 Sat by Pulse 97 97 97 Oximetry 02/28/24 02/28/24 02/28/24 02:00 03:00 04:00 Temperature Pulse Rate 54 L 51 L 56 L Pulse Rate [ Pulse Oximetery ] Respiratory 14 15 17 Rate Blood Pressure 136/60 120/59 142/61 Blood Pressure [Right Arm] O2 Sat by Pulse 99 99 98 Oximetry 02/28/24 02/28/24 02/28/24 06:00 07:00 15:00 Temperature 97.9 F Pulse Rate 53 L Pulse Rate [ 67 63 Pulse Oximetery ] Respiratory 14 15 16 Rate Blood Pressure 131/65 Blood Pressure 136/63 112/62 [Right Arm] O2 Sat by Pulse 96 97 97 Oximetry Medical Decision Making - Medical Decision Making The patient had chest x-ray that I interpreted as negative for acute infiltrate, pneumothorax, congestive heart failure The patient had CT scan of the chest that I interpreted as negative for acute pulmonary embolism Was pt. sent in by a medical professional or institution (, PA, SUPERVISING ARCHITECT, urgent care, hospital, or long term...) When possible be specific @ -[No] Did you speak to anyone other than the patient for history (EMS, parent, family, police, friend...)? What history was obtained from this source @ -[No] Did you review nursing and triage notes (agree or disagree)? Why? @ -[I reviewed and agree with nursing and triage notes] Were old charts reviewed (outside hosp., previous admission, EMS record, old EKG, old radiological studies, urgent care reports/EKG's, long term records)? Report findings @ -[No old charts were reviewed] Differential Diagnosis (chest pain, altered mental status, abdominal pain women, abdominal pain men, vaginal bleeding, weakness, fever, dyspnea, syncope, headache, dizziness, GI bleed, back pain, seizure, CVA, palpatations, mental he alth, musculoskeletal)? @ -[Differential Chest Pain: Stable Angina, Unstable Angina, STEMI, NSTEMI Aortic Dissection, Pneumothorax, Musculoskeletal, Esophageal Spasm GERD, Cholecystitis, Pancreatitis, Zoster, this is not meant to be an all-inclusive list. EKG interpreted by me (3pts min.). @ -[I interpreted as above] X-rays interpreted by me (1pt min.). @ -I interpreted as above CT interpreted by me (1pt min.). @ -[I interpreted as above U/S interpreted by me (1pt. min.). @ -[None done] What testing was considered but not performed or refused? (CT, X-rays, U/S, labs)? Why? @ -[None] What meds were considered but not given or refused? Why? @ -[None] Did you discuss the management of the patient with other professionals (professionals i.e. , PA, SUPERVISING ARCHITECT, lab, RT, psych nurse, social work coordinator, ruling machine set up operator, teacher, chief creative officer, bottle caser)? Give summary @ -[No] Was smoking cessation discussed for >3mins.? @ -[No] Was critical care preformed (if so, how long)? @ -[No] Were there social determinants of health that impacted care today? How? (Homelessness, low income, unemployed, alcoholism, drug addiction, transportation, low edu. Level, literacy, decrease access to med. care, residential, rehab)? @ -[No] Was there de-escalation of care discussed even if they declined (Discuss DNR or withdrawal of care, Hospice)? DNR status @ -[No] What co-morbidities impacted this encounter? (DM, HTN, Smoking, COPD, CAD, Cancer, CVA, ARF, Chemo, Hep., AIDS, mental health diagnosis, sleep apnea, morbid obesity)? @ -[Hypertension Was patient admitted / discharged? Hospital course, mention meds given and route, prescriptions, significant lab abnormalities, going to OR and other pertinent info. @ -[Patient is an 83-year-old woman presenting with chest pain who was admitted to have serial cardiac enzymes, telemetry monitoring, cardiology evaluation. Undiagnosed new problem with uncertain prognosis? @ -[No] Drug Therapy requiring intensive monitoring for toxicity (Heparin, Nitro, Insuli n, Cardizem)? @ -[No] Were any procedures done? @ -[No] Diagnosis/symptom? @ -[Acute chest pain Acute, or Chronic, or Acute on Chronic? @ -[Acute Uncomplicated (without systemic symptoms) or Complicated (systemic symptoms)? @ -[Uncomplicated Side effects of treatment? @ -[No] Exacerbation, Progression, or Severe Exacerbation? @ -[No] Poses a threat to life or bodily function? How? (Chest pain, USA, PR, pneumonia, PE, COPD, DKA, ARF, appy, cholecystitis, CVA, Diverticulitis, Homicidal, Manning icidal, threat to staff... and all critical care pts) @ -[Requires further cardiology evaluation All treatments are based on ideal body weight as in ED triage - Lab Data Result diagrams: 02/29/24 06:45 02/27/24 22:15 Lab Results 02/27/24 02/27/24 02/27/24 Range/Units 22:15 22:15 22:15 WBC 8.6 (3.8-10.6) k/uL RBC 4.19 (3.80-5.40) m/uL Hgb 13.5 (11.4-16.0) gm/dL Hct 39.1 (34.0-46.0) % MCV 93.3 (80.0-100.0) fL MCH 32.2 (25.0-35.0) pg MCHC 34.5 (31.0-37.0) g/dL RDW 12.5 (11.5-15.5) % Plt Count 151 (150-450) k/uL MPV 9.9 Neutrophils % 53 % Lymphocytes % 33 % Monocytes % 5 % Eosinophils % 7 % Basophils % 0 % Neutrophils # 4.6 (1.3-7.7) k/uL Lymphocytes # 2.8 (1.0-4.8) k/uL Monocytes # 0.4 (0-1.0) k/uL Eosinophils # 0.6 (0-0.7) k/uL Basophils # 0.0 (0-0.2) k/uL PT 10.3 (10.0-12.5) sec INR 0.9 (<1.2) APTT 18.9 L (22.0-30.0) sec D-Dimer 1.71 H (<0.60) mg/L FEU Sodium 140 (137-145) mmol/L Potassium 4.1 (3.5-5.1) mmol/L Chloride 108 H (98-107) mmol/L Carbon Dioxide 19 L (22-30) mmol/L Anion Gap 13 mmol/L BUN 25 H (7-17) mg/dL Creatinine 0.68 (0.52-1.04) mg/dL Est GFR (CKD-EPI)AfAm >90 (>60 ml/min/1.73 sqM) Est GFR (CKD-EPI)NonAf 82 (>60 ml/min/1.73 sqM) Glucose 119 H (74-99) mg/dL Lactic Ac Sepsis Rflx Plasma Lactic Acid Emiliano (0.7-2.0) mmol/L Calcium 9.0 (8.4-10.2) mg/dL Magnesium (1.6-2.3) mg/dL Total Bilirubin 0.6 (0.2-1.3) mg/dL AST 36 (14-36) U/L ALT 20 (4-34) U/L Alkaline Phosphatase 34 L (38-126) U/L Troponin I (0.000-0.034) ng/mL Total Protein 7.0 (6.3-8.2) g/dL Albumin 4.4 (3.5-5.0) g/dL Triglycerides (0.00-149.00) mg/dL Cholesterol (0.00-200.00) mg/dL LDL Cholesterol, Calc (0.0-131.0) mg/dL VLDL Cholesterol, Calc (5.00-40.00) mg/dL HDL Cholesterol (40.00-60.00) mg/dL Cholesterol/HDL Ratio Ratio Urine Color Urine Appearance (Clear) Urine pH (5.0-8.0) Ur Specific [place] (1.001-1.035) Urine Protein (Negative) Urine Glucose (UA) (Negative) Urine Ketones (Negative) Urine Blood (Negative) Urine Nitrite (Negative) Urine Bilirubin (Negative) Urine Urobilinogen (<2.0) mg/dL Ur Leukocyte Esterase (Negative) Influenza Type A (PCR) (Not Detectd) Influenza Type B (PCR) (Not Detectd) RSV (PCR) (Not Detectd) SARS-CoV-2 (PCR) (Not Detectd) 02/27/24 02/27/24 02/27/24 Range/Units 22:15 22:38 22:38 WBC (3.8-10.6) k/uL RBC (3.80-5.40) m/uL Hgb (11.4-16.0) gm/dL Hct (34.0-46.0) % MCV (80.0-100.0) fL MCH (25.0-35.0) pg MCHC (31.0-37.0) g/dL RDW (11.5-15.5) % Plt Count (150-450) k/uL MPV Neutrophils % % Lymphocytes % % Monocytes % % Eosinophils % % Basophils % % Neutrophils # (1.3-7.7) k/uL Lymphocytes # (1.0-4.8) k/uL Monocytes # (0-1.0) k/uL Eosinophils # (0-0.7) k/uL Basophils # (0-0.2) k/uL PT (10.0-12.5) sec INR (<1.2) APTT (22.0-30.0) sec D-Dimer (<0.60) mg/L FEU Sodium (137-145) mmol/L Potassium (3.5-5.1) mmol/L Chloride (98-107) mmol/L Carbon Dioxide (22-30) mmol/L Anion Gap mmol/L BUN (7-17) mg/dL Creatinine (0.52-1.04) mg/dL Est GFR (CKD-EPI)AfAm (>60 ml/min/1.73 sqM) Est GFR (CKD-EPI)NonAf (>60 ml/min/1.73 sqM) Glucose (74-99) mg/dL Lactic Ac Sepsis Rflx Plasma Lactic Acid Emiliano 2.1 H* (0.7-2.0) mmol/L Calcium (8.4-10.2) mg/dL Magnesium (1.6-2.3) mg/dL Total Bilirubin (0.2-1.3) mg/dL AST (14-36) U/L ALT (4-34) U/L Alkaline Phosphatase (38-126) U/L Troponin I <0.012 (0.000-0.034) ng/mL Total Protein (6.3-8.2) g/dL Albumin (3.5-5.0) g/dL Triglycerides (0.00-149.00) mg/dL Cholesterol (0.00-200.00) mg/dL LDL Cholesterol, Calc (0.0-131.0) mg/dL VLDL Cholesterol, Calc (5.00-40.00) mg/dL HDL Cholesterol (40.00-60.00) mg/dL Cholesterol/HDL Ratio Ratio Urine Color Urine Appearance (Clear) Urine pH (5.0-8.0) Ur Specific [place] (1.001-1.035) Urine Protein (Negative) Urine Glucose (UA) (Negative) Urine Ketones (Negative) Urine Blood (Negative) Urine Nitrite (Negative) Urine Bilirubin (Negative) Urine Urobilinogen (<2.0) mg/dL Ur Leukocyte Esterase (Negative) Influenza Type A (PCR) Not Detected (Not Detectd) Influenza Type B (PCR) Not Detected (Not Detectd) RSV (PCR) Not Detected (Not Detectd) SARS-CoV-2 (PCR) Not Detected (Not Detectd) 02/27/24 02/28/24 02/28/24 Range/Units 23:47 02:21 05:52 WBC (3.8-10.6) k/uL RBC (3.80-5.40) m/uL Hgb (11.4-16.0) gm/dL Hct (34.0-46.0) % MCV (80.0-100.0) fL MCH (25.0-35.0) pg MCHC (31.0-37.0) g/dL RDW (11.5-15.5) % Plt Count (150-450) k/uL MPV Neutrophils % % Lymphocytes % % Monocytes % % Eosinophils % % Basophils % % Neutrophils # (1.3-7.7) k/uL Lymphocytes # (1.0-4.8) k/uL Monocytes # (0-1.0) k/uL Eosinophils # (0-0.7) k/uL Basophils # (0-0.2) k/uL PT (10.0-12.5) sec INR (<1.2) APTT (22.0-30.0) sec D-Dimer (<0.60) mg/L FEU Sodium (137-145) mmol/L Potassium (3.5-5.1) mmol/L Chloride (98-107) mmol/L Carbon Dioxide (22-30) mmol/L Anion Gap mmol/L BUN (7-17) mg/dL Creatinine (0.52-1.04) mg/dL Est GFR (CKD-EPI)AfAm (>60 ml/min/1.73 sqM) Est GFR (CKD-EPI)NonAf (>60 ml/min/1.73 sqM) Glucose (74-99) mg/dL Lactic Ac Sepsis Rflx Y Plasma Lactic Acid Emiliano 0.7 (0.7-2.0) mmol/L Calcium (8.4-10.2) mg/dL Magnesium (1.6-2.3) mg/dL Total Bilirubin (0.2-1.3) mg/dL AST (14-36) U/L ALT (4-34) U/L Alkaline Phosphatase (38-126) U/L Troponin I 0.088 H* (0.000-0.034) ng/mL Total Protein (6.3-8.2) g/dL Albumin (3.5-5.0) g/dL Triglycerides (0.00-149.00) mg/dL Cholesterol (0.00-200.00) mg/dL LDL Cholesterol, Calc (0.0-131.0) mg/dL VLDL Cholesterol, Calc (5.00-40.00) mg/dL HDL Cholesterol (40.00-60.00) mg/dL Cholesterol/HDL Ratio Ratio Urine Color Urine Appearance (Clear) Urine pH (5.0-8.0) Ur Specific [place] (1.001-1.035) Urine Protein (Negative) Urine Glucose (UA) (Negative) Urine Ketones (Negative) Urine Blood (Negative) Urine Nitrite (Negative) Urine Bilirubin (Negative) Urine Urobilinogen (<2.0) mg/dL Ur Leukocyte Esterase (Negative) Influenza Type A (PCR) (Not Detectd) Influenza Type B (PCR) (Not Detectd) RSV (PCR) (Not Detectd) SARS-CoV-2 (PCR) (Not Detectd) 02/28/24 02/28/24 02/28/24 Range/Units 08:06 09:55 09:55 WBC 7.9 (3.8-10.6) k/uL RBC 4.14 (3.80-5.40) m/uL Hgb 13.6 (11.4-16.0) gm/dL Hct 40.3 (34.0-46.0) % MCV 97.3 (80.0-100.0) fL MCH 32.8 (25.0-35.0) pg MCHC 33.7 (31.0-37.0) g/dL RDW 12.4 (11.5-15.5) % Plt Count 148 L (150-450) k/uL MPV 9.7 Neutrophils % 59 % Lymphocytes % 27 % Monocytes % 6 % Eosinophils % 6 % Basophils % 0 % Neutrophils # 4.7 (1.3-7.7) k/uL Lymphocytes # 2.2 (1.0-4.8) k/uL Monocytes # 0.5 (0-1.0) k/uL Eosinophils # 0.5 (0-0.7) k/uL Basophils # 0.0 (0-0.2) k/uL PT 11.0 (10.0-12.5) sec INR 1.0 (<1.2) APTT 23.7 (22.0-30.0) sec D-Dimer (<0.60) mg/L FEU Sodium (137-145) mmol/L Potassium (3.5-5.1) mmol/L Chloride (98-107) mmol/L Carbon Dioxide (22-30) mmol/L Anion Gap mmol/L BUN (7-17) mg/dL Creatinine (0.52-1.04) mg/dL Est GFR (CKD-EPI)AfAm (>60 ml/min/1.73 sqM) Est GFR (CKD-EPI)NonAf (>60 ml/min/1.73 sqM) Glucose (74-99) mg/dL Lactic Ac Sepsis Rflx Plasma Lactic Acid Emiliano (0.7-2.0) mmol/L Calcium (8.4-10.2) mg/dL Magnesium (1.6-2.3) mg/dL Total Bilirubin (0.2-1.3) mg/dL AST (14-36) U/L ALT (4-34) U/L Alkaline Phosphatase (38-126) U/L Troponin I 0.068 H* (0.000-0.034) ng/mL Total Protein (6.3-8.2) g/dL Albumin (3.5-5.0) g/dL Triglycerides (0.00-149.00) mg/dL Cholesterol (0.00-200.00) mg/dL LDL Cholesterol, Calc (0.0-131.0) mg/dL VLDL Cholesterol, Calc (5.00-40.00) mg/dL HDL Cholesterol (40.00-60.00) mg/dL Cholesterol/HDL Ratio Ratio Urine Color Urine Appearance (Clear) Urine pH (5.0-8.0) Ur Specific [place] (1.001-1.035) Urine Protein (Negative) Urine Glucose (UA) (Negative) Urine Ketones (Negative) Urine Blood (Negative) Urine Nitrite (Negative) Urine Bilirubin (Negative) Urine Urobilinogen (<2.0) mg/dL Ur Leukocyte Esterase (Negative) Influenza Type A (PCR) (Not Detectd) Influenza Type B (PCR) (Not Detectd) RSV (PCR) (Not Detectd) SARS-CoV-2 (PCR) (Not Detectd) 02/28/24 02/28/24 02/29/24 Range/Units 17:09 19:57 06:45 WBC (3.8-10.6) k/uL RBC (3.80-5.40) m/uL Hgb (11.4-16.0) gm/dL Hct (34.0-46.0) % MCV (80.0-100.0) fL MCH (25.0-35.0) pg MCHC (31.0-37.0) g/dL RDW (11.5-15.5) % Plt Count (150-450) k/uL MPV Neutrophils % % Lymphocytes % % Monocytes % % Eosinophils % % Basophils % % Neutrophils # (1.3-7.7) k/uL Lymphocytes # (1.0-4.8) k/uL Monocytes # (0-1.0) k/uL Eosinophils # (0-0.7) k/uL Basophils # (0-0.2) k/uL PT (10.0-12.5) sec INR (<1.2) APTT 68.1 H (22.0-30.0) sec D-Dimer (<0.60) mg/L FEU Sodium (137-145) mmol/L Potassium (3.5-5.1) mmol/L Chloride (98-107) mmol/L Carbon Dioxide (22-30) mmol/L Anion Gap mmol/L BUN (7-17) mg/dL Creatinine (0.52-1.04) mg/dL Est GFR (CKD-EPI)AfAm (>60 ml/min/1.73 sqM) Est GFR (CKD-EPI)NonAf (>60 ml/min/1.73 sqM) Glucose (74-99) mg/dL Lactic Ac Sepsis Rflx Plasma Lactic Acid Emiliano (0.7-2.0) mmol/L Calcium (8.4-10.2) mg/dL Magnesium 2.2 (1.6-2.3) mg/dL Total Bilirubin (0.2-1.3) mg/dL AST (14-36) U/L ALT (4-34) U/L Alkaline Phosphatase (38-126) U/L Troponin I (0.000-0.034) ng/mL Total Protein (6.3-8.2) g/dL Albumin (3.5-5.0) g/dL Triglycerides 76.90 (0.00-149.00) mg/dL Cholesterol 119.00 (0.00-200.00) mg/dL LDL Cholesterol, Calc 40.7 (0.0-131.0) mg/dL VLDL Cholesterol, Calc 15.38 (5.00-40.00) mg/dL HDL Cholesterol 62.90 H (40.00-60.00) mg/dL Cholesterol/HDL Ratio 1.89 Ratio Urine Color Colorless Urine Appearance Clear (Clear) Urine pH 6.0 (5.0-8.0) Ur Specific [place] 1.010 (1.001-1.035) Urine Protein Negative (Negative) Urine Glucose (UA) Negative (Negative) Urine Ketones Negative (Negative) Urine Blood Negative (Negative) Urine Nitrite Negative (Negative) Urine Bilirubin Negative (Negative) Urine Urobilinogen <2.0 (<2.0) mg/dL Ur Leukocyte Esterase Negative (Negative) Influenza Type A (PCR) (Not Detectd) Influenza Type B (PCR) (Not Detectd) RSV (PCR) (Not Detectd) SARS-CoV-2 (PCR) (Not Detectd) 02/29/24 02/29/24 02/29/24 Range/Units 06:45 06:45 14:28 WBC 10.4 (3.8-10.6) k/uL RBC 3.83 (3.80-5.40) m/uL Hgb 12.6 (11.4-16.0) gm/dL Hct 37.1 (34.0-46.0) % MCV 96.9 (80.0-100.0) fL MCH 32.9 (25.0-35.0) pg MCHC 34.0 (31.0-37.0) g/dL RDW 12.3 (11.5-15.5) % Plt Count 135 L (150-450) k/uL MPV 9.8 Neutrophils % 69 % Lymphocytes % 21 % Monocytes % 5 % Eosinophils % 4 % Basophils % 0 % Neutrophils # 7.2 (1.3-7.7) k/uL Lymphocytes # 2.1 (1.0-4.8) k/uL Monocytes # 0.5 (0-1.0) k/uL Eosinophils # 0.4 (0-0.7) k/uL Basophils # 0.0 (0-0.2) k/uL PT 11.2 (10.0-12.5) sec INR 1.0 (<1.2) APTT 76.5 H 50.6 H (22.0-30.0) sec D-Dimer (<0.60) mg/L FEU Sodium (137-145) mmol/L Potassium (3.5-5.1) mmol/L Chloride (98-107) mmol/L Carbon Dioxide (22-30) mmol/L Anion Gap mmol/L BUN (7-17) mg/dL Creatinine (0.52-1.04) mg/dL Est GFR (CKD-EPI)AfAm (>60 ml/min/1.73 sqM) Est GFR (CKD-EPI)NonAf (>60 ml/min/1.73 sqM) Glucose (74-99) mg/dL Lactic Ac Sepsis Rflx Plasma Lactic Acid Emiliano (0.7-2.0) mmol/L Calcium (8.4-10.2) mg/dL Magnesium (1.6-2.3) mg/dL Total Bilirubin (0.2-1.3) mg/dL AST (14-36) U/L ALT (4-34) U/L Alkaline Phosphatase (38-126) U/L Troponin I (0.000-0.034) ng/mL Total Protein (6.3-8.2) g/dL Albumin (3.5-5.0) g/dL Triglycerides (0.00-149.00) mg/dL Cholesterol (0.00-200.00) mg/dL LDL Cholesterol, Calc (0.0-131.0) mg/dL VLDL Cholesterol, Calc (5.00-40.00) mg/dL HDL Cholesterol (40.00-60.00) mg/dL Cholesterol/HDL Ratio Ratio Urine Color Urine Appearance (Clear) Urine pH (5.0-8.0) Ur Specific [place] (1.001-1.035) Urine Protein (Negative) Urine Glucose (UA) (Negative) Urine Ketones (Negative) Urine Blood (Negative) Urine Nitrite (Negative) Urine Bilirubin (Negative) Urine Urobilinogen (<2.0) mg/dL Ur Leukocyte Esterase (Negative) Influenza Type A (PCR) (Not Detectd) Influenza Type B (PCR) (Not Detectd) RSV (PCR) (Not Detectd) SARS-CoV-2 (PCR) (Not Detectd) 03/01/24 Range/Units 06:10 WBC (3.8-10.6) k/uL RBC (3.80-5.40) m/uL Hgb (11.4-16.0) gm/dL Hct (34.0-46.0) % MCV (80.0-100.0) fL MCH (25.0-35.0) pg MCHC (31.0-37.0) g/dL RDW (11.5-15.5) % Plt Count (150-450) k/uL MPV Neutrophils % % Lymphocytes % % Monocytes % % Eosinophils % % Basophils % % Neutrophils # (1.3-7.7) k/uL Lymphocytes # (1.0-4.8) k/uL Monocytes # (0-1.0) k/uL Eosinophils # (0-0.7) k/uL Basophils # (0-0.2) k/uL PT (10.0-12.5) sec INR (<1.2) APTT 73.6 H (22.0-30.0) sec D-Dimer (<0.60) mg/L FEU Sodium (137-145) mmol/L Potassium (3.5-5.1) mmol/L Chloride (98-107) mmol/L Carbon Dioxide (22-30) mmol/L Anion Gap mmol/L BUN (7-17) mg/dL Creatinine (0.52-1.04) mg/dL Est GFR (CKD-EPI)AfAm (>60 ml/min/1.73 sqM) Est GFR (CKD-EPI)NonAf (>60 ml/min/1.73 sqM) Glucose (74-99) mg/dL Lactic Ac Sepsis Rflx Plasma Lactic Acid Emiliano (0.7-2.0) mmol/L Calcium (8.4-10.2) mg/dL Magnesium (1.6-2.3) mg/dL Total Bilirubin (0.2-1.3) mg/dL AST (14-36) U/L ALT (4-34) U/L Alkaline Phosphatase (38-126) U/L Troponin I (0.000-0.034) ng/mL Total Protein (6.3-8.2) g/dL Albumin (3.5-5.0) g/dL Triglycerides (0.00-149.00) mg/dL Cholesterol (0.00-200.00) mg/dL LDL Cholesterol, Calc (0.0-131.0) mg/dL VLDL Cholesterol, Calc (5.00-40.00) mg/dL HDL Cholesterol (40.00-60.00) mg/dL Cholesterol/HDL Ratio Ratio Urine Color Urine Appearance (Clear) Urine pH (5.0-8.0) Ur Specific [place] (1.001-1.035) Urine Protein (Negative) Urine Glucose (UA) (Negative) Urine Ketones (Negative) Urine Blood (Negative) Urine Nitrite (Negative) Urine Bilirubin (Negative) Urine Urobilinogen (<2.0) mg/dL Ur Leukocyte Esterase (Negative) Influenza Type A (PCR) (Not Detectd) Influenza Type B (PCR) (Not Detectd) RSV (PCR) (Not Detectd) SARS-CoV-2 (PCR) (Not Detectd) - EKG Data -: EKG Interpreted by Me EKG shows normal: sinus rhythm, axis (Normal), intervals (IN interval is 205 ms, borderline for first-degree AV block. QRS duration 102 ms, QTc 423 ms, both normal.), QRS complexes (Normal) Rate: bradycardia (Rate 54 bpm) Interpretation: nonspecific ST-T wave changes Disposition Clinical Impression: Chest pain Disposition: ADMITTED IP TO THIS HOSP Condition: Fair Is patient prescribed a controlled substance at d/c from ED?: No
[2024-02-27] MEDS: ASPIRIN 81 MG PO STA (22:32)
[2024-02-27 22:51] LABS: ALT 20 U/L (4-34); African American GFR (CKD) >90 (>60 ml/min/1.73 sqM); Anion Gap 13 mmol/L; Blood Urea Nitrogen 25 mg/dL (7-17); Carbon Dioxide 19 mmol/L (22-30); Chloride 108 mmol/L (98-107); Glucose 119 mg/dL (74-99); Non-African American GFR(CKD) 82 (>60 ml/min/1.73 sqM); Sodium 140 mmol/L (137-145); Total Bilirubin 0.6 mg/dL (0.2-1.3)
[2024-02-27 22:52] LABS: INR 0.9 (<1.2); Prothrombin Time 10.3 sec (10.0-12.5)
[2024-02-27 22:54] LABS: Partial Thromboplastin Time 18.9 sec (22.0-30.0)
[2024-02-27 22:57] LABS: AST 36 U/L (14-36); Albumin 4.4 g/dL (3.5-5.0); Alkaline Phosphatase 34 U/L (38-126); Potassium 4.1 mmol/L (3.5-5.1)
--- NOTE | 2024-02-27 23:00 | XR ---
EXAMINATION TYPE: XR chest 2V DATE OF EXAM: 02/27/2024 10:33 PM COMPARISON: None. CLINICAL INDICATION: Female, 83 years old with history of difficulty breathing, TECHNIQUE: XR chest 2V view(s) obtained. FINDINGS: The heart size is normal. The pulmonary vasculature is normal. The lungs are clear. Some costochondral cartilage calcification appears to be present on the right. No significant interval change is evident. IMPRESSION: 1. No acute pulmonary process. [facility], , 02/27/2024 10:57 PM
[2024-02-27 23:24] LABS: Influenza A Not Detected (Not Detectd); Influenza B Not Detected (Not Detectd); RSV Not Detected (Not Detectd)
[2024-02-28] MEDS: SODIUM CHLORIDE 0.9% 1,000 ML IV ONE (00:47)
--- NOTE | 2024-02-28 02:39 | CT ---
EXAM: CT Angiography Chest With Intravenous Contrast CLINICAL HISTORY: ITS.REASON CT Reason: chest pain, possible PE TECHNIQUE: Axial computed tomographic angiography images of the chest with intravenous contrast. CTDI is 26.9 mGy and DLP is 349 mGy-cm. This CT exam was performed using one or more of the following dose reduction techniques: automated exposure control, adjustment of the mA and/or kV according to patient size, and/or use of iterative reconstruction technique. MIP reconstructed images were created and reviewed. COMPARISON: 11/12/17 FINDINGS: Pulmonary arteries: Adequate pulmonary opacification. Normal caliber main pulmonary artery. No evidence of acute pulmonary embolism. Aorta: No acute findings. No aortic aneurysm or dissection. Lungs: Unremarkable. No mass. No consolidation. Pleural space: Unremarkable. No significant effusion. No pneumothorax. Heart: Minimal coronary artery atherosclerosis. No cardiomegaly or pericardial effusion. Bones/joints: No acute fracture. No dislocation. Soft tissues: Unremarkable. Lymph nodes: Unremarkable. No enlarged lymph nodes. Other findings: Cystectomy. IMPRESSION: No evidence of acute pulmonary embolism.
[2024-02-28] MEDS ORDERED: NITROGLYCERIN SL TABS 0.4 MG TAB SUBLINGUAL PRN (05:33)
[2024-02-28] MEDS: PANTOPRAZOLE 40 MG TABLET PO SCH (08:44)
[2024-02-28] MEDS: hydroCHLOROthiazide 12.5 MG CAP PO SCH (08:44)
[2024-02-28] MEDS: LOSARTAN 50 MG TAB PO SCH (08:45)
[2024-02-28] MEDS: CALCIUM CARBONATE 500 MG CHEWABLE PO SCH (08:46)
[2024-02-28] MEDS: predniSONE 20 MG TAB PO SCH (08:46)
[2024-02-28] MEDS ORDERED: HEPARIN SODIUM 1,000 UN/ML (10ML VL) IV PRN (09:21)
--- NOTE | 2024-02-28 09:26 | P.CRDCN ---
History of Present Illness Consult date: 02/28/24 History of present illness: HISTORY OF PRESENTING ILLNESS: Patient has a past medical history of hypertension and dyslipidemia. She had a heart cath in 2013 which showed mild nonobstructive coronary artery disease. She is known to Dr. Peralta otherwise. This time she presented to the hospital because of not feeling well for last 1 to 2 days. The night before presentation to the hospital she was having substernal chest pressure and heaviness along with having difficulty breathing and palpitation symptoms. On admission to the ER she received sublingual nitroglycerin and aspirin which helped her pain. Admission Cardiac Labs: Admission troponin was negative, repeat troponin was 0.08. Admission lactate was 2.1, repeat 0.1, BUN 25, creatinine 0.6, hemoglobin 13.5 Admission testing: EKG shows normal sinus rhythm with no significant ST-T wave changes CTA chest negative for PE REVIEW OF SYSTEMS: 14 point review of system is negative except what is mentioned above in HPI. PHYSICAL EXAMINATION: Neck: Brisk carotid upstroke, no jugular venous distention. Lungs: Clear to auscultation. Heart: Regular rate and rhythm, S1-S2, , no murmur or rub. Abdomen: Soft nontender, positive bowel sounds. Extremities: No edema, intact distal pulses. Neuro: Alert, oritented, no focal deficits. Detailed neuro exam was not performed. ASSESSMENT: # NSTEMI # Substernal chest pressure and palpitations along with shortness of breath # Essential hypertension # Dyslipidemia PLAN: Obtain echocardiogram, repeat 1 more troponin level Continue aspirin, Lipitor. Will not start beta-ulises due to low resting heart rate. Start Imdur 30 mg daily Continue losartan 100mg daily and HCTZ 12.5 mg daily Start IV heparin drip Possible cath on Friday with Dr. Fabian Henriquez MD, FAC, RPVI Thank you for allowing [facility] to participate in this patient's care. Feel free to reach out in case of any followup questions. Past Medical History Past Medical History: GERD/Reflux, Hyperlipidemia, Hypertension, Osteoarthritis (OA), Skin Disorder Additional Past Medical History / Comment(s): arthritis all over , psoriasis usually on lower legs. face and arms when flaring. History of Any Multi-Drug Resistant Organisms: None Reported Past Surgical History: Back Surgery, Cholecystectomy, Heart Catheterization, Hysterectomy Additional Past Surgical History / Comment(s): reduction of pelvic fracture. bilateral cataract removal with lens implant Past Anesthesia/Blood Transfusion Reactions: Postoperative Nausea & Vomiting (PONV) Additional Past Anesthesia/Blood Transfusion Reaction / Comment(s): no blood transfusions Past Psychological History: No Psychological Hx Reported Smoking Status: Never smoker - Past Family History Father Family Medical History: Hypertension Additional Family Medical History / Comment(s): States Father had stents Mother Family Medical History: Hypertension Medications and Allergies Home Medications Medication Instructions Recorded Confirmed Type Omeprazole [PriLOSEC] 20 mg PO AC-BID@0800,1200 10/03/13 01/08/22 History Estradiol 1 mg PO DAILY 07/11/15 01/08/22 History Acetaminophen/Diphenhydramine 2 tab PO HS 11/12/17 01/08/22 History [Tylenol PM Extra Strength] Aspirin EC [Ecotrin Low Dose] 81 mg PO HS 06/09/21 01/08/22 History Atorvastatin [Lipitor] 20 mg PO HS 06/09/21 01/08/22 History Dicyclomine [Bentyl] 40 mg PO AC-BID 06/09/21 01/08/22 History hydroCHLOROthiazide 12.5 mg PO DAILY 06/09/21 01/08/22 History Losartan [Cozaar] 100 mg PO DAILY #30 tab 06/10/21 01/08/22 Rx Calcium Carbonate [Calcium] 1,200 mg PO DAILY 01/02/22 01/08/22 History Unk Multi Vitamin 1 tab PO DAILY 01/02/22 01/08/22 History Unk Preservision 1 tab PO DAILY 01/02/22 01/08/22 History Unk Vit E /[place] 3 1 tab PO DAILY 01/02/22 01/08/22 History predniSONE [Deltasone] 20 mg PO BID 3 Days #6 tab 06/23/22 Rx Allergies Allergy/AdvReac Type Severity Reaction Status Date / Time adhesive Allergy Rash/Hives Verified 02/28/24 09:25 latex Allergy Rash/Hives Verified 02/28/24 09:25 Physical Exam Vitals: Vital Signs Temp Pulse Pulse Resp BP BP Pulse Ox 02/28/24 07:00 97.9 F 67 15 136/63 97 02/28/24 06:00 53 L 14 131/65 96 02/28/24 04:00 56 L 17 142/61 98 02/28/24 03:00 51 L 15 120/59 99 02/28/24 02:00 54 L 14 136/60 99 02/28/24 00:27 52 L 17 132/54 97 02/27/24 23:00 52 L 17 132/51 97 02/27/24 21:59 97.8 F 64 18 159/124 97 Intake and Output 02/27/24 02/28/24 02/28/24 22:59 06:59 14:59 Other: Weight 61.235 kg Results 02/27/24 22:15 02/27/24 22:15 Cardiac Enzymes 02/27/24 02/27/24 02/28/24 Range/Units 22:15 22:15 05:52 AST 36 (14-36) U/L Troponin I <0.012 0.088 H* (0.000-0.034) ng/mL 02/28/24 Range/Units 08:06 AST (14-36) U/L Troponin I 0.068 H* (0.000-0.034) ng/mL Coagulation 02/27/24 Range/Units 22:15 PT 10.3 (10.0-12.5) sec APTT 18.9 L (22.0-30.0) sec CBC 02/27/24 Range/Units 22:15 WBC 8.6 (3.8-10.6) k/uL RBC 4.19 (3.80-5.40) m/uL Hgb 13.5 (11.4-16.0) gm/dL Hct 39.1 (34.0-46.0) % Plt Count 151 (150-450) k/uL Comprehensive Metabolic Panel 02/27/24 Range/Units 22:15 Sodium 140 (137-145) mmol/L Potassium 4.1 (3.5-5.1) mmol/L Chloride 108 H (98-107) mmol/L Carbon Dioxide 19 L (22-30) mmol/L BUN 25 H (7-17) mg/dL Creatinine 0.68 (0.52-1.04) mg/dL Glucose 119 H (74-99) mg/dL Calcium 9.0 (8.4-10.2) mg/dL AST 36 (14-36) U/L ALT 20 (4-34) U/L Alkaline Phosphatase 34 L (38-126) U/L Total Protein 7.0 (6.3-8.2) g/dL Albumin 4.4 (3.5-5.0) g/dL Current Medications Generic Name Dose Route Start Last Admin Trade Name Freq PRN Reason Stop Dose Admin Aspirin 81 mg 02/28/24 21:00 Aspirin 81 Mg PO HS [facility] Atorvastatin Calcium 20 mg 02/28/24 21:00 Atorvastatin 20 Mg Tab PO HS [facility] Calcium Carbonate/Glycine 1,000 mg 02/28/24 09:00 02/28/24 08:46 Calcium Carbonate 500 Mg Chewable PO Not Given DAILY [facility] Heparin Sodium (Porcine) 0 unit 02/28/24 09:21 Heparin Sodium 1,000 Un/Ml (10ml Vl) IV PER PROTOCOL PRN Low PTT Protocol Hydrochlorothiazide 12.5 mg 02/28/24 09:00 02/28/24 08:44 Hydrochlorothiazide 12.5 Mg Cap PO 12.5 mg DAILY [facility] Administration Heparin Sodium/Sodium Chloride 250 mls @ 7.348 mls/hr 02/28/24 10:00 25,000 unit/ Sodium Chloride IV .Q24H [facility] Protocol 12 UNITS/KG/HR Isosorbide Mononitrate 30 mg 02/28/24 09:30 Isosorbide Mononitrate Er 30 Mg Tab.Er.24h PO DAILY [facility] Losartan Potassium 100 mg 02/28/24 09:00 02/28/24 08:45 Losartan 50 Mg Tab PO 100 mg DAILY [facility] Administration Nitroglycerin 0.4 mg 02/28/24 05:33 Nitroglycerin Sl Tabs 0.4 Mg Tab SUBLINGUAL Q5M PRN Chest Pain Pantoprazole Sodium 40 mg 02/28/24 08:00 02/28/24 08:44 Pantoprazole 40 Mg Tablet PO 40 mg AC-BID@0800,1200 [facility] Administration Prednisone 20 mg 02/28/24 09:00 02/28/24 08:46 Prednisone 20 Mg Tab PO Not Given BID [facility] Intake and Output 02/27/24 02/28/24 02/28/24 22:59 06:59 14:59 Other: Weight 61.235 kg 02/27/24 22:15 02/27/24 22:15
[2024-02-28] MEDS: HEPARIN SODIUM 1,000 UN/ML (10ML VL) IV ONE (10:30)
[2024-02-28] MEDS: ISOSORBIDE MONONITRATE ER 30 MG TAB.ER.24H PO SCH (10:30)
[2024-02-28] MEDS: HEPARIN SOD,PORK IN 0.45% NACL 25,000 UNIT in 0.45% NACL 1 250ML.BAG IV SCH (10:31)
[2024-02-28 10:38] LABS: Basophils % (A) 0 %; Eosinophils # (A) 0.5 k/uL (0-0.7); Eosinophils % (A) 6 %; HCT 40.3 % (34.0-46.0); HGB 13.6 gm/dL (11.4-16.0); Lymphocytes # (A) 2.2 k/uL (1.0-4.8); Lymphocytes % (A) 27 %; MCH 32.8 pg (25.0-35.0); MCHC 33.7 g/dL (31.0-37.0); MCV 97.3 fL (80.0-100.0); Mean Platelet Volume 9.7; Monocytes # (A) 0.5 k/uL (0-1.0); Monocytes % (A) 6 %; Neutrophils # (A) 4.7 k/uL (1.3-7.7); Neutrophils % (A) 59 %; Platelet Count 148 k/uL (150-450); RBC 4.14 m/uL (3.80-5.40); RDW 12.4 % (11.5-15.5); WBC 7.9 k/uL (3.8-10.6)
[2024-02-28 10:47] LABS: Partial Thromboplastin Time 23.7 sec (22.0-30.0)
--- NOTE | 2024-02-28 11:35 | P.HPIM ---
History of Present Illness This is a pleasant 83 years old female with past medical history of multiple medical problems as below Presents because of chest pain of 2 hours duration in the middle of her chest radiating to the left side and left shoulder about 7-8/10 in severity felt like pressure improved with nitroglycerin pill. Associated with some dyspnea it was hard for her to breathe but currently she is breathing okay. No significant coughing. She has some nausea but no significant other GI symptoms like vomiting or diarrhea or abdominal pain. No urinary complaint. No headache dizziness weakness. She walks fine She denies smoking alcohol or illicit drugs. She denies taking any prednisone at home. Prednisone 20 mg twice daily was ordered as part of her home medication but when asked the patient she denies taking any prednisone and she agrees to be discontinued She is hemodynamically stable Labs including CBC, BMP, LFT and INR were unremarkable D-dimer was elevated 1.7 but CTA was negative for PE Troponin was first negative at less than 0.012 but then elevated at 0.08 and 0.068 EKG showing sinus bradycardia at [address]-T changes Chest x-ray is negative for acute process Patient currently on heparin drip and aspirin 81 mg Review of Systems Review of systems CONSTITUTIONAL: No fever, no malaise, no fatigue. HEENT: No recent visual problems or hearing problems. Denied any sore throat. CARDIOVASCULAR: No orthopnea, PND, no palpitations, no syncope. PULMONARY: No shortness of breath, no cough, no hemoptysis. GASTROINTESTINAL: No diarrhea, no nausea, no vomiting, no abdominal pain. Normoactive bowel sounds. NEUROLOGICAL: No headaches, no weakness, no numbness. HEMATOLOGICAL: Denies any bleeding or petechiae. GENITOURINARY: Denies any burning micturition, frequency, or urgency. MUSCULOSKELETAL/RHEUMATOLOGICAL: Denies any joint pain, swelling, or any muscle pain. ENDOCRINE: Denies any polyuria or polydipsia. Past Medical History Past Medical History: GERD/Reflux, Hyperlipidemia, Hypertension, Osteoarthritis (OA), Skin Disorder Additional Past Medical History / Comment(s): arthritis all over , psoriasis usually on lower legs. face and arms when flaring. History of Any Multi-Drug Resistant Organisms: None Reported Past Surgical History: Back Surgery, Cholecystectomy, Heart Catheterization, Hysterectomy Additional Past Surgical History / Comment(s): reduction of pelvic fracture. bilateral cataract removal with lens implant Past Anesthesia/Blood Transfusion Reactions: Postoperative Nausea & Vomiting (PONV) Additional Past Anesthesia/Blood Transfusion Reaction / Comment(s): no blood transfusions Past Psychological History: No Psychological Hx Reported Smoking Status: Never smoker - Past Family History Father Family Medical History: Hypertension Additional Family Medical History / Comment(s): States Father had stents Mother Family Medical History: Hypertension Medications and Allergies Home Medications Medication Instructions Recorded Confirmed Type Omeprazole [PriLOSEC] 20 mg PO AC-BID 10/03/13 02/28/24 History Estradiol 1 mg PO DAILY 07/11/15 02/28/24 History Aspirin EC [Ecotrin Low Dose] 81 mg PO HS 06/09/21 02/28/24 History Atorvastatin [Lipitor] 20 mg PO HS 06/09/21 02/28/24 History hydroCHLOROthiazide 12.5 mg PO DAILY 06/09/21 02/28/24 History Losartan [Cozaar] 100 mg PO DAILY #30 tab 06/10/21 02/28/24 Rx Allergies Allergy/AdvReac Type Severity Reaction Status Date / Time adhesive Allergy Rash/Hives Verified 02/28/24 09:25 latex Allergy Rash/Hives Verified 02/28/24 09:25 Physical Exam Vitals: Vital Signs Temp Pulse Pulse Resp BP BP Pulse Ox 02/28/24 07:00 97.9 F 67 15 136/63 97 02/28/24 06:00 53 L 14 131/65 96 02/28/24 04:00 56 L 17 142/61 98 02/28/24 03:00 51 L 15 120/59 99 02/28/24 02:00 54 L 14 136/60 99 02/28/24 00:27 52 L 17 132/54 97 02/27/24 23:00 52 L 17 132/51 97 02/27/24 21:59 97.8 F 64 18 159/124 97 Intake and Output 02/27/24 02/28/24 02/28/24 22:59 06:59 14:59 Other: Weight 61.235 kg GENERAL: The patient is alert and oriented x3, not in any acute distress. Well developed, well nourished. HEENT: Pupils are round and equally reacting to light. EOMI. No scleral icterus. No conjunctival pallor. Normocephalic, atraumatic. No pharyngeal erythema. No thyromegaly. CARDIOVASCULAR: S1 and S2 present. No murmurs, rubs, or gallops. PULMONARY: Chest is clear to auscultation, no wheezing , no crackles. ABDOMEN: Soft, nontender, nondistended, normoactive bowel sounds. No palpable organomegaly. MUSCULOSKELETAL: No joint swelling or deformity. EXTREMITIES: No cyanosis, clubbing, or pedal edema. NEUROLOGICAL: Gross neurological examination did not reveal any focal deficits. SKIN: No rashes. no petechiae. Results CBC & Chem 7: 02/28/24 09:55 02/27/24 22:15 Labs: Abnormal Lab Results - Last 24 Hours (Table) 02/27/24 02/27/24 02/27/24 Range/Units 22:15 22:15 22:38 Plt Count (150-450) k/uL APTT 18.9 L (22.0-30.0) sec D-Dimer 1.71 H (<0.60) mg/L FEU Chloride 108 H (98-107) mmol/L Carbon Dioxide 19 L (22-30) mmol/L BUN 25 H (7-17) mg/dL Glucose 119 H (74-99) mg/dL Plasma Lactic Acid Emiliano 2.1 H* (0.7-2.0) mmol/L Alkaline Phosphatase 34 L (38-126) U/L Troponin I (0.000-0.034) ng/mL 02/28/24 02/28/24 02/28/24 Range/Units 05:52 08:06 09:55 Plt Count 148 L (150-450) k/uL APTT (22.0-30.0) sec D-Dimer (<0.60) mg/L FEU Chloride (98-107) mmol/L Carbon Dioxide (22-30) mmol/L BUN (7-17) mg/dL Glucose (74-99) mg/dL Plasma Lactic Acid Emiliano (0.7-2.0) mmol/L Alkaline Phosphatase (38-126) U/L Troponin I 0.088 H* 0.068 H* (0.000-0.034) ng/mL Assessment and Plan Assessment: Chest pain with elevated troponin suspicious for non-STEMI Hypertension Elevated D-dimer with negative CTA for PE Plan: Continue with heparin drip Continue with aspirin Cardiology consult Discontinue prednisone, patient is not taking it at home Labs and medication were reviewed.. Continue same treatment. Continue with symptomatic treatment. Resume home medication. Monitor labs and vitals. DVT and GI prophylaxis. Further recommendations as per clinical course of the patient DVT prophylaxis: heparin GI Prophylaxis: Ppi Prognosis is guarded
--- NOTE | 2024-02-28 14:22 | CA ---
Transthoracic Echo Report Name: Frances Phillips Age: 83 Gender: F : 1940 Exam Date: 02/28/2024 11:59 Exam Location: [place] [facility] Ht (in): 61 Wt (lb): 135 Ordering Physician: Edgardo Henriquez MD ([id number]) Attending/Referring Phys: Machine Gun Mechanic Frieda Garland RDCS Procedure CPT: Indications: nstemi Cardiac Hx: Technical Quality: Good Contrast 1: Total Dose (mL): Contrast 2: Total Dose (mL): MEASUREMENTS (Male / Female) Normal Values 2D ECHO LV Diastolic Diameter PLAX 4.2 cm 4.2 - 5.9 / 3.9 - 5.3 cm LV Systolic Diameter PLAX 3.0 cm IVS Diastolic Thickness 0.8 cm 0.6 - 1.0 / 0.6 - 0.9 cm LVPW Diastolic Thickness 0.9 cm 0.6 - 1.0 / 0.6 - 0.9 cm LV Relative Wall Thickness 0.4 LVOT Diameter 2.1 cm LV Diastolic Volume MOD BP 83.5 cm??? 67 - 155 / 56 - 104 cm??? LV Systolic Volume MOD BP 28.4 cm??? 22 - 58 / 19 - 49 cm??? LV Ejection Fraction MOD BP 65.9 % >= 55 % LV Cardiac Index MOD BP 2184.1 cm???/min???m??? LV Diastolic Volume MOD 4C 78.9 cm??? LV Systolic Volume MOD 4C 26.1 cm??? LV Ejection Fraction MOD 4C 66.9 % LV Cardiac Index MOD 4C 2095.2 cm???/min???m??? LV Diastolic Length 4C 8.0 cm LV Systolic Length 4C 6.3 cm LV Diastolic Volume MOD 2C 85.9 cm??? LV Systolic Volume MOD 2C 30.5 cm??? LV Ejection Fraction MOD 2C 64.5 % LV Cardiac Index MOD 2C 2198.0 cm???/min???m??? LV Diastolic Length 2C 8.3 cm LV Systolic Length 2C 6.4 cm LA Volume 52.3 cm??? 18 - 58 / 22 - 52 cm??? LA Volume Index 32.0 cm???/m??? 16 - 28 cm???/m??? DOPPLER AV Peak Velocity 160.9 cm/s AV Peak Gradient 10.3 mmHg AV Mean Velocity 101.7 cm/s AV Mean Gradient 4.7 mmHg AV Velocity Time Integral 35.4 cm LVOT Peak Velocity 115.8 cm/s LVOT Peak Gradient 5.4 mmHg LVOT Velocity Time Integral 27.0 cm LVOT Stroke Volume 91.0 cm??? LVOT Stroke Volume Index 57.0 ml/m??? LVOT Cardiac Index 3614.0 cm???/min???m??? AV Area Cont Eq vti 2.6 cm??? AV Area Cont Eq pk 2.4 cm??? MV Area PHT 3.1 cm??? Mitral E Point Velocity 80.4 cm/s Mitral A Point Velocity 82.2 cm/s Mitral E to A Ratio 1.0 MV Deceleration Time 247.4 ms TR Peak Velocity 241.2 cm/s TR Peak Gradient 23.3 mmHg Right Atrial Pressure 5.0 mmHg Pulmonary Artery Systolic Pressu 28.3 mmHg Right Ventricular Systolic Press 28.3 mmHg PV Peak Velocity 84.2 cm/s PV Peak Gradient 2.8 mmHg FINDINGS Left Ventricle Left ventricular ejection fraction is estimated at 60 %. Left ventricular cavity size normal. Left ventricular wall thickness normal. No obvious regional wall motion abnormalities. Right Ventricle Normal right ventricular size and function. Right ventricular systolic pressure within normal limits. Right Atrium Normal right atrial size. Left Atrium Mildly increased left atrial volume. Mitral Valve Structurally normal mitral valve. No evidence for mitral valve prolapse. No mitral stenosis. Trace mitral regurgitation. Aortic Valve Trileaflet aortic valve. Diffuse thickening (sclerosis) of the aortic valve cusps without reduced excursion. No aortic stenosis. Trace aortic regurgitation. Tricuspid Valve Structurally normal tricuspid valve. No tricuspid stenosis. Mild tricuspid regurgitation. Pulmonic Valve Pulmonic valve not well visualized. No pulmonic stenosis. No pulmonic regurgitation. Pericardium No pericardial effusion. Aorta Aortic annulus normal. CONCLUSIONS LVEF 60% No obvious regional wall motion abnormalities. Normal right ventricular size and function. Mildly increased left atrial volume. Trace mitral regurgitation. Sclerotic aortic valve with trace regurgitation Mild tricuspid regurgitation. Previewed by: Dr Edgardo Henriquez (Electronically Signed) Final Date: 28 February 2024 14:20
[2024-02-28] MEDS: ASPIRIN 81 MG PO SCH (20:04)
[2024-02-28] MEDS: ATORVASTATIN 20 MG TAB PO SCH (20:04)
[2024-02-28] MEDS: PHENAZOPYRIDINE 100 MG TAB PO PRN (21:15)
[2024-02-28 21:41] LABS: Appearance,Urine Clear (Clear); Bilirubin,Urine Negative (Negative); Blood,Urine Negative (Negative); Color,Urine Colorless; Glucose,Urine (UA) Negative (Negative); Ketones,Urine Negative (Negative); Leukocyte Esterase,Urine Negative (Negative); Nitrite,Urine Negative (Negative); Protein,Urine Negative (Negative); Urobilinogen,Urine <2.0 mg/dL (<2.0)
[2024-02-29] MEDS: ONDANSETRON 4 MG/2 ML VIAL IVP PRN (03:53)
[2024-02-29 07:51] LABS: Basophils % (A) 0 %; Eosinophils # (A) 0.4 k/uL (0-0.7); Eosinophils % (A) 4 %; HCT 37.1 % (34.0-46.0); HGB 12.6 gm/dL (11.4-16.0); Lymphocytes # (A) 2.1 k/uL (1.0-4.8); Lymphocytes % (A) 21 %; MCH 32.9 pg (25.0-35.0); MCV 96.9 fL (80.0-100.0); Mean Platelet Volume 9.8; Monocytes # (A) 0.5 k/uL (0-1.0); Monocytes % (A) 5 %; Neutrophils # (A) 7.2 k/uL (1.3-7.7); Neutrophils % (A) 69 %; Platelet Count 135 k/uL (150-450); RBC 3.83 m/uL (3.80-5.40); RDW 12.3 % (11.5-15.5); WBC 10.4 k/uL (3.8-10.6)
[2024-02-29 08:02] LABS: Partial Thromboplastin Time 76.5 sec (22.0-30.0); Prothrombin Time 11.2 sec (10.0-12.5)
[2024-02-29 08:44] LABS: Magnesium 2.2 mg/dL (1.6-2.3)
[2024-02-29] MEDS ORDERED: ASPIRIN 325 MG TAB PO SCH (09:00)
[2024-02-29] MEDS ORDERED: diphenhydrAMINE 2% CREAM 28.4 GM TUBE TOPICAL PRN (12:10)
--- NOTE | 2024-02-29 12:32 | P.PN ---
Subjective This is a pleasant 83 years old female with past medical history of multiple medical problems as below Presents because of chest pain of 2 hours duration in the middle of her chest radiating to the left side and left shoulder about 7-8/10 in severity felt like pressure improved with nitroglycerin pill. Associated with some dyspnea it was hard for her to breathe but currently she is breathing okay. No significant coughing. She has some nausea but no significant other GI symptoms like vomiting or diarrhea or abdominal pain. No urinary complaint. No headache dizziness weakness. She walks fine She denies smoking alcohol or illicit drugs. She denies taking any prednisone at home. Prednisone 20 mg twice daily was ordered as part of her home medication but when asked the patient she denies taking any prednisone and she agrees to be discontinued She is hemodynamically stable Labs including CBC, BMP, LFT and INR were unremarkable D-dimer was elevated 1.7 but CTA was negative for PE Troponin was first negative at less than 0.012 but then elevated at 0.08 and 0.068 EKG showing sinus bradycardia at [address]-T changes Chest x-ray is negative for acute process Patient currently on heparin drip and aspirin 81 mg 02/28 Mild chest pain, described as pressure She has little dyspnea She remains on a heparin drip Cardiology evaluation for possible cardiac cath on Friday Objective - Vital Signs Vital signs: Vital Signs Temp 98.1 F 02/29/24 12:00 Pulse 64 02/29/24 12:00 Resp 16 02/29/24 12:00 BP 115/60 02/29/24 12:00 Pulse Ox 97 02/29/24 12:00 FiO2 Intake & Output 02/28/24 02/29/24 02/29/24 18:59 06:59 18:59 Intake Total 158.839 Output Total 200 Balance -200 158.839 Weight 61.235 kg 60.3 kg Intake: Intake, IV Titration 158.839 Amount Heparin Sod,Pork in 0.45% 158.839 NaCl 25,000 unit In 0.45 % NaCl 1 250ml.bag @ 12 UNITS/KG/HR 7.348 mls/hr IV .Q24H [facility] Rx#: [id number] Output: Urine 200 Other: Voiding Method Bedside Commode Bedside Commode # Voids 3 1 - Exam GENERAL: The patient is alert and oriented x3, not in any acute distress. Well developed, well nourished. HEENT: Pupils are round and equally reacting to light. EOMI. No scleral icterus. No conjunctival pallor. Normocephalic, atraumatic. No pharyngeal erythema. No thyromegaly. CARDIOVASCULAR: S1 and S2 present. No murmurs, rubs, or gallops. PULMONARY: Chest is clear to auscultation, no wheezing , no crackles. ABDOMEN: Soft, nontender, nondistended, normoactive bowel sounds. No palpable organomegaly. MUSCULOSKELETAL: No joint swelling or deformity. EXTREMITIES: No cyanosis, clubbing, or pedal edema. NEUROLOGICAL: Gross neurological examination did not reveal any focal deficits. SKIN: No rashes. no petechiae. - Labs CBC & Chem 7: 02/29/24 06:45 02/27/24 22:15 Labs: Abnormal Lab Results - Last 24 Hours (Table) 02/28/24 02/29/24 02/29/24 Range/Units 17:09 06:45 06:45 Plt Count 135 L (150-450) k/uL APTT 68.1 H 76.5 H (22.0-30.0) sec Assessment and Plan Assessment: Chest pain with elevated troponin suspicious for non-STEMI Hypertension Elevated D-dimer with negative CTA for PE Plan: Continue with heparin drip Continue with aspirin Cardiology consult Discontinue prednisone, patient is not taking it at home Labs and medication were reviewed.. Continue same treatment. Continue with symptomatic treatment. Resume home medication. Monitor labs and vitals. DVT and GI prophylaxis. Further recommendations as per clinical course of the patient DVT prophylaxis: heparin GI Prophylaxis: Ppi Prognosis is guarded
[2024-02-29 13:58] LABS: Chol/HDL Ratio 1.89 Ratio; LDL Cholesterol,Calculated 40.7 mg/dL (0.0-131.0); VLDL Calculation 15.38 mg/dL (5.00-40.00)
[2024-02-29] MEDS ORDERED: ALPRAZolam 0.25 MG TAB PO PRN (14:41)
[2024-02-29] MEDS ORDERED: NITROGLYCERIN SL TABS 0.4 MG TAB SUBLINGUAL PRN (14:41)
[2024-02-29] MEDS ORDERED: ALPRAZolam 0.5 MG TAB PO PRN (14:41)
--- NOTE | 2024-02-29 22:51 | P.PN ---
Subjective Progress Note Date: 02/29/24 HISTORY OF PRESENTING ILLNESS: Patient has a past medical history of hypertension and dyslipidemia. She had a heart cath in 2013 which showed mild nonobstructive coronary artery disease. She is known to Dr. Peralta otherwise. This time she presented to the hospital because of not feeling well for last 1 to 2 days. The night before presentation to the hospital she was having substernal chest pressure and heaviness along with having difficulty breathing and palpitation symptoms. On admission to the ER she received sublingual nitroglycerin and aspirin which helped her pain. Admission Cardiac Labs: Admission troponin was negative, repeat troponin was 0.08. Admission lactate was 2.1, repeat 0.1, BUN 25, creatinine 0.6, hemoglobin 13.5 Admission testing: EKG shows normal sinus rhythm with no significant ST-T wave changes CTA chest negative for PE Echo during this admission shows EF of 60%, No obvious regional wall motion abnormality, mild LA dilatation, aortic valve sclerosis Progress note 02/29/2024. Patient reports symptomatic improvement in terms of decreased intensity and frequency of her chest pressure. She still continues to have some symptoms however. Blood pressure 131/62, heart rate 61 bpm, hemoglobin 12.1 LDL 40, PHYSICAL EXAMINATION: Neck: Brisk carotid upstroke, no jugular venous distention. Lungs: Clear to auscultation. Heart: Regular rate and rhythm, S1-S2, , no murmur or rub. Abdomen: Soft nontender, positive bowel sounds. Extremities: No edema, intact distal pulses. Neuro: Alert, oritented, no focal deficits. Detailed neuro exam was not performed. ASSESSMENT: # NSTEMI # Substernal chest pressure and palpitations along with shortness of breath # Essential hypertension # Dyslipidemia PLAN: Continue aspirin, Lipitor. Will not start beta-ulises due to low resting heart rate. Start Imdur 30 mg daily Continue losartan 100mg daily and HCTZ 12.5 mg daily Continue IV heparin drip Cardiac cath on Friday with Dr. Rollins Objective - Vital Signs Vital signs: Vital Signs Temp 98.0 F 02/29/24 19:29 Pulse 60 02/29/24 19:29 Resp 16 02/29/24 19:29 BP 114/56 02/29/24 19:29 Pulse Ox 99 02/29/24 19:29 FiO2 Intake & Output 02/29/24 02/29/24 03/01/24 06:59 18:59 06:59 Intake Total 574.839 Output Total 200 Balance -200 574.839 Weight 60.3 kg Intake: Intake, IV Titration 158.839 Amount Heparin Sod,Pork in 0.45% 158.839 NaCl 25,000 unit In 0.45 % NaCl 1 250ml.bag @ 12 UNITS/KG/HR 7.348 mls/hr IV .Q24H [facility] Rx#: [id number] Oral 416 Output: Urine 200 Other: Voiding Method Bedside Commode Bedside Commode Toilet # Voids 1 - Labs CBC & Chem 7: 02/29/24 06:45 02/27/24 22:15 Labs: Abnormal Lab Results - Last 24 Hours (Table) 02/29/24 02/29/24 02/29/24 Range/Units 06:45 06:45 06:45 Plt Count 135 L (150-450) k/uL APTT 76.5 H (22.0-30.0) sec HDL Cholesterol 62.90 H (40.00-60.00) mg/dL 02/29/24 Range/Units 14:28 Plt Count (150-450) k/uL APTT 50.6 H (22.0-30.0) sec HDL Cholesterol (40.00-60.00) mg/dL
[2024-03-01] MEDS: EMPTY BAG 1 BAG with SODIUM CHLORIDE 0.9% 1,000 ML IV ONE (04:54)
[2024-03-01] MEDS: ATORVASTATIN 80 MG TAB PO ONE (06:01)
[2024-03-01] MEDS: ASPIRIN 325 MG TAB PO ONE (06:01)
[2024-03-01] MEDS ORDERED: HEPARIN SODIUM,PORCINE 10,000 UNIT in SODIUM CHLORIDE 0.9% 1,000 ML IRRIGATION PRN (07:00)
[2024-03-01] MEDS ORDERED: HEPARIN SODIUM,PORCINE (1 ML) 2,500 UNIT in SODIUM CHLORIDE 0.9% 250 ML IRRIGATION PRN (07:00)
[2024-03-01] MEDS: IV FLUID CONTINUATION 1,000 ML IV ONE (09:03)
[2024-03-01] MEDS: LIDOCAINE 1% INJ 10MG/ML (20 ML MDV) SQ ONE (09:03)
[2024-03-01] MEDS: MIDAZOLAM 2 MG/2 ML VIAL IVP ONE (09:03)
[2024-03-01] MEDS: VERAPAMIL SYRINGE (5 MG/10 ML) INTRAARTER ONE (09:08)
[2024-03-01] MEDS: HEPARIN SODIUM 1,000 UN/ML (10ML VL) IVP ONE (09:10)
[2024-03-01] MEDS: IOPAMIDOL-370 100ML BTL INJ ONE (09:19)
[2024-03-01] MEDS ORDERED: RX INFO: IV CONTRAST WAS GIVEN 1 EACH MISC MISCELLANE PRN (09:28)
--- NOTE | 2024-03-01 09:38 | CC ---
CARDIAC CATHETERIZATION REPORT INDICATION: [id number] elevation myocardial infarction. PROCEDURE NOTE: After obtaining informed consent, left heart catheterization and coronary angiogram were performed via the right radial artery using standard Ish catheters. The patient tolerated the procedure well without any obvious immediate complications. A TR band will be used for hemostasis. The patient received moderate conscious sedation. Total sedation time was 12 minutes. Right radial artery access was obtained using Seldinger technique, a 6-[place] sheath was placed. Catheters and wires were floated into the ascending aorta under fluoroscopic guidance. The patient received verapamil, was already on heparin, and we gave her an additional 1000 units of heparin. The heparin was stopped about an hour prior to coming in. FINDINGS: 1. Hemodynamics: Left ventricular end-diastolic pressure is 12 mm. There is no significant gradient across the aortic valve. 2. Left ventriculogram: The Left ventriculogram was not performed. 3. Angiographic data: a.Right coronary artery: The right coronary artery is a normal-sized vessel and is free of stenosis. b.Left main coronary artery: The left main coronary artery is a normal-sized vessel, divides into left anterior descending coronary artery and circumflex coronary artery. LAD shows an area of mild atherosclerotic plaque just proximal to the diagonal branch. c.The circumflex coronary artery and its branches are free of significant stenosis. CONCLUSION: Mild nonobstructive disease involving mid LAD. PLAN: The patient's management is going to be in the form of risk factor modification and medical therapy. MMODL / IJN: [id number] /
[2024-03-01] MEDS: SODIUM CHLORIDE 0.9% 1,000 ML IV SCH (09:50)
[2024-03-01] MEDS: ACETAMINOPHEN TAB 325 MG TAB PO PRN (17:30)
--- NOTE | 2024-03-01 22:52 | P.PN ---
Subjective This is a pleasant 83 years old female with past medical history of multiple medical problems as below Presents because of chest pain of 2 hours duration in the middle of her chest radiating to the left side and left shoulder about 7-8/10 in severity felt like pressure improved with nitroglycerin pill. Associated with some dyspnea it was hard for her to breathe but currently she is breathing okay. No significant coughing. She has some nausea but no significant other GI symptoms like vomiting or diarrhea or abdominal pain. No urinary complaint. No headache dizziness weakness. She walks fine She denies smoking alcohol or illicit drugs. She denies taking any prednisone at home. Prednisone 20 mg twice daily was ordered as part of her home medication but when asked the patient she denies taking any prednisone and she agrees to be discontinued She is hemodynamically stable Labs including CBC, BMP, LFT and INR were unremarkable D-dimer was elevated 1.7 but CTA was negative for PE Troponin was first negative at less than 0.012 but then elevated at 0.08 and 0.068 EKG showing sinus bradycardia at [address]-T changes Chest x-ray is negative for acute process Patient currently on heparin drip and aspirin 81 mg 02/28 Mild chest pain, described as pressure She has little dyspnea She remains on a heparin drip Cardiology evaluation for possible cardiac cath on Wednesday 03/01 Patient kept doing well She underwent cardiac cath which showed nonobstructive disease of LAD However patient has some oozing from the puncture site for her cardiac cath and her wrist area and patient is kept overnight for monitoring Possible discharge in the morning if she improves Objective - Vital Signs Vital signs: Vital Signs Temp 97.5 F L 03/01/24 19: Pulse 59 L 03/01/24 19:21 Resp 16 03/01/24 19:21 BP 129/60 03/01/24 19:21 Pulse Ox 97 03/01/24 19:21 FiO2 Intake & Output 03/01/24 03/01/24 03/02/24 06:59 18:59 06:59 Intake Total 91.161 392.136 600 Balance 91.161 392.136 600 Weight 59.3 kg Intake: IV 100 600 Sodium Chloride 0.9% 1, 600 000 ml @ 75 mls/hr IV . [id number] [facility] Rx#:[id number] Intake, IV Titration .161 56.136 Amount Heparin Sod,Pork in 0.45% 91.161 56.136 NaCl 25,000 unit In 0.45 % NaCl 1 250ml.bag @ 12 UNITS/KG/HR 7.348 mls/hr IV .Q24H [facility] Rx#: [id number] Oral 236 Other: Voiding Method Toilet Bedpan Toilet # Voids 1 2 - Exam GENERAL: The patient is alert and oriented x3, not in any acute distress. Well developed, well nourished. HEENT: Pupils are round and equally reacting to light. EOMI. No scleral icterus. No conjunctival pallor. Normocephalic, atraumatic. No pharyngeal erythema. No thyromegaly. CARDIOVASCULAR: S1 and S2 present. No murmurs, rubs, or gallops. PULMONARY: Chest is clear to auscultation, no wheezing , no crackles. ABDOMEN: Soft, nontender, nondistended, normoactive bowel sounds. No palpable organomegaly. MUSCULOSKELETAL: No joint swelling or deformity. EXTREMITIES: No cyanosis, clubbing, or pedal edema. NEUROLOGICAL: Gross neurological examination did not reveal any focal deficits. SKIN: No rashes. no petechiae. - Labs CBC & Chem 7: 02/29/24 06:45 02/27/24 22:15 Labs: Abnormal Lab Results - Last 24 Hours (Table) 03/01/24 Range/Units 06:10 APTT 73.6 H (22.0-30.0) sec Assessment and Plan Assessment: Chest pain with elevated troponin suspicious for non-STEMI.. S/p cardiac cath 12/30 showed nonobstructive disease of LAD Hypertension Elevated D-dimer with negative CTA for PE Plan: Continue with heparin drip Continue with aspirin Cardiology consult Discontinue prednisone, patient is not taking it at home Labs and medication were reviewed.. Continue same treatment. Continue with symptomatic treatment. Resume home medication. Monitor labs and vitals. DVT and GI prophylaxis. Further recommendations as per clinical course of the patient DVT prophylaxis: heparin GI Prophylaxis: Ppi Prognosis is guarded
[2024-03-02 08:45] VITALS: RESP 16; TEMP 97.6
[2024-03-02 11:21] VITALS: BP 121/61; PULSE 47
--- NOTE | 2024-03-02 12:23 | P.PN ---
Subjective HISTORY OF PRESENT ILLNESS: This is an 83-year-old female who underwent cardiac catheterization yesterday with Dr. Rollins revealing mild nonobstructive disease involving the mid LAD. Patient examined this morning the bedside. Patient currently denies chest pain or pressure. She denies shortness of breath. Right radial cath site with pulses present. No hematoma noted. Vital signs are stable. PHYSICAL EXAM: VITAL SIGNS: Reviewed. GENERAL: Well-developed in no acute distress. NECK: Supple. No JVD or thyromegaly LUNGS: Respirations even and unlabored. Lungs essentially clear to auscultation bilaterally. HEART: Regular rate and rhythm. S1 and S2 heard. EXTREMITIES: Normal range of motion. No clubbing or cyanosis. Peripheral pulses intact. No lower extremity edema ASSESSMENT: Non-STEMI, status post cardiac catheterization revealing mild nonobstructive disease involving the mid LAD Hypertension Hyperlipidemia PLAN: Continue current cardiac medications Patient is stable for discharge home today from a cardiac standpoint Patient to follow-up post discharge with Dr. Rollins Nurse practitioner note has been reviewed by physician. Signing provider agrees with the documented findings, assessment, and plan of care documented by [employer] as a scribe. Objective - Vital Signs Vital signs: Vital Signs Temp 97.6 F 03/02/24 08:00 Pulse 47 L 03/02/24 11:21 Resp 16 03/02/24 11:21 BP 121/61 03/02/24 11:21 Pulse Ox 97 03/02/24 11:21 FiO2 Intake & Output 03/01/24 03/02/24 03/02/24 18:59 06:59 18:59 Intake Total 438.231 6026 180 Balance 168.374 3639 180 Weight 62.5 kg Intake: IV 100 1200 Sodium Chloride 0.9% 1, 1200 000 ml @ 75 mls/hr IV . [id number] [facility] Rx#:[id number] Intake, IV Titration 56.136 Amount Heparin Sod,Pork in 0.45% 56.136 NaCl 25,000 unit In 0.45 % NaCl 1 250ml.bag @ 12 UNITS/KG/HR 7.348 mls/hr IV .Q24H [facility] Rx#: [id number] Oral 236 180 Other: Voiding Method Bedpan Toilet Toilet # Voids 2 1 - Labs CBC & Chem 7: 02/29/24 06:45 02/27/24 22:15
--- NOTE | 2024-03-02 20:54 | P.DS ---
Providers Date of admission: 03/01/24 10:26 Attending physician: Cam Ceballos MD Consults: 02/28/24 05:34 Consult Physician Routine Consulting Provider: Álvaro Garcia Consult Reason/Comments: chest pain Do you want consulting provider notified?: Yes Primary care physician: Vicente Knutson Hospital Course: Diagnoses: Chest pain with elevated troponin suspicious for non-STEMI.. S/p cardiac cath 12/30 showed nonobstructive disease of LAD Hypertension Elevated D-dimer with negative CTA for PE Hospital course: This is a pleasant 83 years old female with past medical history of multiple medical problems as below Presents because of chest pain of 2 hours duration in the middle of her chest radiating to the left side and left shoulder Patient evaluated by biodiesel engine specialist and she underwent cardiac cathD-dimer was elevated 1.7 but CTA was negative for PE Troponin was first negative at less than 0.012 but then elevated at 0.08 and 0.068 EKG showing sinus bradycardia at [address]-T changes Patient was evaluated by biodiesel engine specialist and she underwent cardiac cath showing nonobstructive disease of LAD Same day patient developed some wheezing at the puncture site show she was monitored overnight, today wheezing stopped and wound is healing and she Doing well walking in the room freely and happily with no problem. No chest pain or dyspnea. No other new complaint eager to go home Patient was cleared for discharge by biodiesel engine specialist Problems and management plan were discussed with the patient and he verbalized understanding and acceptance Patient was found stable and can be discharged home in guarded prognosis however he needs follow-up as an outpatient. Patient was instructed to follow up with PCP within one week and patient agrees Patient was instructed to follow-up with biodiesel engine specialist Dr. Peralta in 2 weeks and she agrees Physical exam Gen: patient is a AAOx3, no distress CVS: S1-S2, RRR, no murmur Lungs: B/L CTA, no wheezing Abdomen: soft, no distention, no tenderness, positive bowel sounds Extremity: no leg edema or induration Time spent more than 35 minutes Plan - Discharge Summary New Discharge Prescriptions: New Isosorbide Mononitrate ER [Imdur] 30 mg PO DAILY #30 tab Continue Omeprazole [PriLOSEC] 20 mg PO AC-BID hydroCHLOROthiazide 12.5 mg PO DAILY Atorvastatin [Lipitor] 20 mg PO HS Losartan [Cozaar] 100 mg PO DAILY #30 tab Aspirin EC [Ecotrin Low Dose] 81 mg PO HS No Action Estradiol 1 mg PO DAILY Discharge Medication List Omeprazole [PriLOSEC] 20 mg PO AC-BID 10/03/13 [History] Estradiol 1 mg PO DAILY 07/11/15 [History] Aspirin EC [Ecotrin Low Dose] 81 mg PO HS 06/09/21 [History] Atorvastatin [Lipitor] 20 mg PO HS 06/09/21 [History] hydroCHLOROthiazide 12.5 mg PO DAILY 06/09/21 [History] Losartan [Cozaar] 100 mg PO DAILY #30 tab 06/10/21 [Rx] Isosorbide Mononitrate ER [Imdur] 30 mg PO DAILY #30 tab 03/01/24 [Rx] Follow up Appointment(s)/Referral(s): Vicente Knutson MD [Primary Care Provider] - 1-2 days Cole Rollins MD [STAFF PHYSICIAN] - 2 Weeks Patient Instructions/Handouts: *Surgery [facility] - After Heart Catheterization - Infectious Waste Technician Instructions, Angina (ED) Activity/Diet/Wound Care/Special Instructions: Heart healthy diet Activity is restricted till you see your doctor Discharge Disposition: HOME SELF-CARE
== END 2024-03-02 15:14 | disposition home or self-care (01) | DRG 282 ==
LOC: EC 21:53 → 6NMEDSUR 02-28 05:34 → 3SCARD 02-28 16:17 → OBSVTOIN 03-01 10:26
PROVIDERS: ADMIT Internal Medicine; ATTEND Internal Medicine
PROC: 4A023N7 Measurement of Cardiac Sampling and Pressure, Left Heart, Percutaneous Approach (ICD-10-PCS; principal; 2024-03-01 14:00)
PROC: B2111ZZ Fluoroscopy of Multiple Coronary Arteries using Low Osmolar Contrast (ICD-10-PCS; principal; 2024-03-01 14:00)
DX: I21.4 Non-ST elevation (NSTEMI) myocardial infarction (principal); E78.5 Hyperlipidemia, unspecified; I10 Essential (primary) hypertension; I25.10 Atherosclerotic heart disease of native coronary artery without angina pectoris; R00.1 Bradycardia, unspecified; R79.1 Abnormal coagulation profile; K21.9 Gastro-esophageal reflux disease without esophagitis; M19.90 Unspecified osteoarthritis, unspecified site; L40.9 Psoriasis, unspecified; Z79.82 Long term (current) use of aspirin; Z79.899 Other long term (current) drug therapy; Z91.040 Latex allergy status; Z79.890 Hormone replacement therapy
CPT/HCPCS: 36415; 71046; 71275; 80053; 80061; 81003; 83605; 83735; 84484; 85025; 85379; 85610; 85730; 87636; 93005; 93306; 93458; 96365; 96366; 99285

== ENCOUNTER 2024-08-19 17:46 | Emergency (ER) | payer BC, MEDICARE, OTHER ==
[2024-08-19 17:54] VITALS: RESP 18; TEMP 98
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
[2024-08-19 18:45] LABS: Basophils # (A) 0.05 10*3/uL (0.00-0.10); Basophils % (A) 0.6 %; Eosinophils # (A) 0.34 10*3/uL (0.04-0.35); Eosinophils % (A) 4.2 %; HCT 41.2 % (37.2-46.3); HGB 14.5 g/dL (12.0-15.0); Lymphocytes # (A) 3.00 10*3/uL (0.90-5.00); Lymphocytes % (A) 37.5 %; MCH 33.0 pg (27.0-32.0); MCHC 35.2 g/dL (32.0-37.0); MCV 93.6 fL (80.0-97.0); Monocytes # (A) 0.52 10*3/uL (0.20-1.00); Monocytes % (A) 6.5 %; Neutrophils # (A) 4.09 10*3/uL (1.80-7.70); Neutrophils % (A) 51.1 %; Platelet Count 157 10*3/uL (140-440); RBC 4.40 10*6/uL (4.10-5.20); RDW 12.4 % (11.5-14.5); WBC 8.01 10*3/uL (4.50-10.00)
[2024-08-19 19:05] LABS: INR 1.0 (<1.2); Partial Thromboplastin Time 22.1 sec (22.0-30.0); Prothrombin Time 10.7 sec (10.0-12.5)
[2024-08-19 19:17] LABS: ALT 30 U/L (4-34); AST 34 U/L (14-36); African American GFR (CKD) >90 (>60 ml/min/1.73 sqM); Albumin 4.6 g/dL (3.5-5.0); Alkaline Phosphatase 45 U/L (38-126); Anion Gap 15 mmol/L; Blood Urea Nitrogen 29 mg/dL (7-17); Calcium 10.1 mg/dL (8.4-10.2); Carbon Dioxide 20 mmol/L (22-30); Chloride 104 mmol/L (98-107); Glucose 94 mg/dL (74-99); Non-African American GFR(CKD) 82 (>60 ml/min/1.73 sqM); Potassium 3.7 mmol/L (3.5-5.1); Sodium 139 mmol/L (137-145); Total Protein 7.3 g/dL (6.3-8.2)
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
[2024-08-19] MEDS: MORPHINE SULFATE 2 MG/ML SYRINGE IVP STA (19:26)
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
[2024-08-19 21:12] VITALS: BP 174/77; PULSE 76
== END 2024-08-19 21:25 | disposition home or self-care (01) ==
LOC: EC 17:46
DX: S16.1XXA Strain of muscle, fascia and tendon at neck level, initial encounter (principal); G89.29 Other chronic pain; Z91.09 Other allergy status, other than to drugs and biological substances; Z91.040 Latex allergy status; V43.52XA Car driver injured in collision with other type car in traffic accident, initial encounter; Y92.410 Unspecified street and highway as the place of occurrence of the external cause
CPT/HCPCS: 93005; 86900; 86901; 80053; 83605; 84484; 85025; 85610; 85730; 86850; 80320; 72170; 71045; 72125; 70450; 71260; 74177; 99285; 96374; J2270; Q9967; 36415